=== PATIENT | female | born 1965 | race Caucasian/White ===

== ENCOUNTER 2021-05-05 14:33 | Inpatient (IN) ==
--- NOTE | 2021-05-05 14:33 | Emergency Department Note ---
Impression & Plan Thalamic stroke, Tobacco abuse, Right arm weakness, Expressive aphasia ED Provider Note NAME: YANY PORTILLO AGE: 56 SEX: F : 1965 ARRIVES VIA: Ambulance INFORMANT: Patient, ED PROVIDER(S): David June MD Chief Complaint: Difficulty with speech, right-sided weakness HPI: I did receive an out of hospital phone call via EMS when the patient was approximately 8 to 10 minutes out due to concern for cute onset at 1350 of right-sided weakness and associated garbled speech. Patient reportedly had sy mptoms earlier in the week but they resolved quite quickly and the patient did not seek any care. The patient is a smoker but denies any alcohol or drug use. The patient states that she does not take blood thinners. The patient does have a remote history of atrial flutter in the past for which she was on Eliquis. Patient is adamant about not taking blood thinners. Patient's speech is somewhat confused but she is able to respond appropriately to yes or no questioning and can follow basic commands. Patient did have right upper extremity but not right lower extremity weakness and did have some difficulty with right-sided grimace. EMS states that the patient symptoms have improved. BSG was normal. Patient systolic was in the 150s. Patient does complain of headache and has a history of migraines. ROS: See HPI for pertinent positives and negatives. A total of 10 systems were reviewed and otherwise negative. Past medical history: See below Surgical history: See below Social history: See below Physical Exam: GENERAL: NAD, non-toxic. EYE EXAM: Normal conjunctiva. PERRL, no anisocoria and EOM's grossly intact w/o pain. NECK: Supple, no nuchal rigidity, no adenopathy, non-tender. No signs of meningismus. LUNGS: Clear to auscultation. Normal chest wall mechanics. HEART: NSR, no MRG. ABDOMEN: Abdomen soft, non-tender, normo-active bowel sounds, no masses, no rebound or guarding. BACK: No CVA TTP. SKIN: No rashes and no bruising. UPPER EXTREMITIES: Upper extremities are grossly normal. LOWER EXTREMITIES: Grossly normal, no edema. NEURO EXAM: Awake and alert and does follow basic commands, cranial nerves II- XII grossly intact with exception of right-sided droop, expressive aphasia noted. Grossly normal bilateral upper and lower extremity strength. Differential diagnoses: Infection, dehydration, metabolic abnormality, hypo/hyperglycemia, electrolyte disturbance, anemia, hypoxia, cardiac sources, intracerebral event, toxicologic, neurologic, as well as other pathologies. Course: Patient was seen and evaluated the bedside. Full history physical exam was per formed. EKG interpreted by me Normal sinus rhythm, rate of 70, normal intervals, left axis deviation, no obvious ST elevations, T wave inversion in V2. Imaging Studies: See Below Cardiac monitoring: An order was placed for continuous cardiac monitoring. The monitor shows a rate of 68 with sinus rhythm. MDM: Patient was seen due to concern for right-sided deficits. Patient's last med list showed that the patient was on Eliquis and metoprolol. I did ask shelter case manager to try and see if there was a current med list and/or most recent note. The stroke neurologist did speak with the patient and the patient's symptoms seem to regress from when she initially presented to the emergency department as the patient had worsening expressive aphasia and right upper extremity weakness. The telestroke neurologist was unable to verify if the patient was not taking Eliquis. I did attempt to call the patient's mother which was listed as a contact return straight to [facility]. I then tried to expand The search for a contact number to verify as I went back in the room and wrote down the medicati ons and the patient was unable to say yes or no appropriately with regard to what medication she may or may not take. This did delay the possibility of administering TNK as concomitant taking blood thinning medications is a contraindication for administering TN K. I had spoken with telestroke 15 to 20 minutes after the patient's presentation with Dr. Rodrigez who did evaluate the patient patient was having stuttering symptoms with worsening right upper extremity weakness and aphasia. She is also hesitant to administer TNKase given the concern for the possibility of taking blood thinner. I did speak with the patient's mother who stated that she should be taking a blood thinning medication but she is unsure as to whether or not she is taking it. After further discussion with the patient's daughter who arrived she went and asked her mother if she was taking the blood thinner and she stated yes. I did speak with on-call cardiology Dr. Will who was kind enough to try to search for the patient to the [facility] records and it was noted that the patient is not prescribed through [facility] any Eliquis whatsoever. The patient is only written for aspirin and metoprolol. The patient's boyfriend went to the patient's house and called in stating that the only medication he could find was metoprolol. The patient does feel her medications at [facility] in [place]. The ED pharmacist did call the pharmacy. The patient has not filled Eliquis since August 2018. The patient does not use any other locations to fill medications per daughter. After further discussion with the daughter at bedside it seems to be that I would be thought that the patient was taking a blood thinner that they were referring to aspirin as a blood thinning medication. There was no evidence of any Eliquis at the patient's home or in her purse. Given this I believe it unlikely that the patient is taking Eliquis Eliquis as she has not had it filled at the pharmacy which she routinely fills her metoprolol since 2018. Family is comfortable with administering this medication. I did speak with the telestroke neurologist Dr. Rodrigez again who also reevaluated the patient and agrees that given the research we had done to either confirm or deny the Eliquis would put her at a low likelihood of taking the Eliquis to where she believes TN K reasonable at this time the patient is still within the TNKase window. I did speak with the on-call hospitalist and the patient was admitted to the medicine service by Dr. Nieto. I did speak with the on-call storage architect Dr. Baker to make them aware of the patient. MRI did show acute thalamic stroke. Patient had virtual complete resolution of her symptoms and is awake alert and talking. The patient has good and equal symmetric strength in her bilateral upper extremities. After being evaluated the hospitalist patient did have some mild left-sided chest discomfort was ordered CT angio of the chest. This was negative. Patient was taken to the intensive care unit. Critical Care: I have personally spent 125 minutes of critical care time in direct management of this patient. This includes bedside care, interpretation of diagnostic studies, and testing, discussion with consultants, patient, and family members, and other require inpatient management activities. This 125 minutes is in excess of all separately billable procedures. Past Med/Surg History Medical History No significant past medical history Surgical History History of breast biopsy History of biopsy breast open on CCD History of laparoscopic cholecystectomy Family History Mother Atrial fibrillation Aunt Breast cancer Grandmother Coronary heart disease Social History Smoking Status: Current every day smoker Hx Alcohol Use: No Hx Substance Use: No Preferred Language: Arabic Communication Ability: Impaired International First Officer Required: No Beliefs That Will Affect Care: None marital status: Current Living Situation: Alone current occupational status: employed Feels Safe at Home: Yes Safety Concerns: Feels Safe At This Time Assistive Devices: CPAP Allergies Allergies Allergy/AdvReac Type Severity Reaction Status Date / Time codeine AdvReac Intermediate NAUSEA/VOMI Verified 05/05/21 15:00 TING Home Meds Home Medications Medication Instructions Recorded Confirmed aspirin 81 mg tablet,delayed 81 mg PO DAILY 05/05/21 05/05/21 release metoprolol succinate 25 mg 25 mg PO DAILY 05/05/21 05/05/21 tablet,extended release 24 hr Results & Data (ED) Vital Signs Vital Signs - 24 hr 05/05/21 14:48 05/05/21 15:10 05/05/21 15:32 Temperature 36.8 C Temperature Source Oral Pulse Rate 72 Pulse Rate [Left Finger] 55 L Pulse Rhythm [Left Finger] Regular Pulse Strength [Left Finger] Normal Respiratory Rate 18 16 Respiratory Effort / Characteristics Non-Labored Non-Labored Spontaneous Respiratory Depth Normal Normal Respiratory Pattern Regular Blood Pressure 137/87 Blood Pressure [Left Arm] 137/75 Blood Pressure Mean 103 Blood Pressure Mean [Left Arm] 95 Blood Pressure Position [Left Arm] Sitting Pulse Oximetry 98 97 Oxygen Delivery Method Room Air Room Air Sepsis Recent Fever Within 48 Hours No Sepsis New/Unexplained Change in Mental Status No Sepsis Action Taken by Nursing No Action Required 05/05/21 16:23 Temperature Temperature Source Pulse Rate Pulse Rate [Left Finger] 57 L Pulse Rhythm [Left Finger] Pulse Strength [Left Finger] Respiratory Rate 18 Respiratory Effort / Characteristics Respiratory Depth Respiratory Pattern Blood Pressure Blood Pressure [Left Arm] 150/81 H Blood Pressure Mean Blood Pressure Mean [Left Arm] 104 Blood Pressure Position [Left Arm] Lying Pulse Oximetry 99 Oxygen Delivery Method Sepsis Recent Fever Within 48 Hours Sepsis New/Unexplained Change in Mental Status Sepsis Action Taken by [facility] Medications Current Medication List: was personally reviewed by me Laboratory Data Attestation: I reviewed the patient's lab results. Result diagrams: 05/05/21 14:59 05/05/21 14:59 Lab Results 05/05/21 05/05/21 05/05/21 Range/Units 14:59 14:59 14:59 WBC 6.85 (4.8-10.8) K/uL RBC 4.31 (4.2-5.4) M/uL Hgb 12.9 (12.0-16.0) g/dL Hct 39.6 (37-47) % MCV 91.9 (80-100) fL MCH 29.9 (25-34) pg MCHC 32.6 (32-36) g/dL RDW Std Deviation 43.9 (36.4-46.3) fL RDW Coeff of Andrea 13.0 (11.5-14.5) % Plt Count 271 (130-400) K/uL MPV 9.3 (7.4-10.4) fL Immature Gran % (Auto) 0.1 % Neut % (Auto) 51.6 % Lymph % (Auto) 35.5 % Gregg % (Auto) 6.6 % Eos % (Auto) 5.3 % Baso % (Auto) 0.9 % Neut # (Auto) 3.54 (1.4-6.5) K/uL Lymph # (Auto) 2.43 (1.2-3.4) K/uL Gregg # (Auto) 0.45 (0.11-0.59) K/uL Eos # (Auto) 0.36 (0-0.5) K/uL Baso # (Auto) 0.06 (0-0.2) K/uL Immature Gran # (Auto) 0.01 (0.00-0.02) K/uL PT 10.1 (9.0-12.0) Seconds INR 1.0 (0.9-1.1) APTT 26.1 (21.0-31.0) Seconds PTT Ratio 1.0 Sodium (136-145) mmol/L Potassium (3.5-5.1) mmol/L Chloride (98-107) mmol/L Carbon Dioxide (21-32) mmol/L Anion Gap (3-11) BUN (6-23) mg/dl Creatinine (0.6-1.2) mg/dl Est Cr Clr Drug Dosing ml/min Est GFR ( Amer) ml/min Est GFR (Non-Af Amer) ml/min BUN/Creatinine Ratio (10-20) Glucose (70-99(Fasting)) mg/dl POC Glucose (70-99) mg/dl Calcium (8.5-10.1) mg/dl Magnesium (1.7-2.4) mg/dl Total Bilirubin (0.2-1.0) mg/dl AST (13-39) U/L ALT (7-52) U/L Alkaline Phosphatase (34-104) U/L Troponin I (0-0.04) ng/ml Total Protein (6.0-8.3) gm/dl Albumin (3.4-5.0) gm/dl Globulin (2.5-4.0) gm/dl Albumin/Globulin Ratio (0.9-2) SARS-CoV-2, RNA, NAAT (NEGATIVE) Blood Type O Positive Antibody Screen NEGATIVE 05/05/21 05/05/21 05/05/21 Range/Units 14:59 14:59 15:19 WBC (4.8-10.8) K/uL RBC (4.2-5.4) M/uL Hgb (12.0-16.0) g/dL Hct (37-47) % MCV (80-100) fL MCH (25-34) pg MCHC (32-36) g/dL RDW Std Deviation (36.4-46.3) fL RDW Coeff of Andrea (11.5-14.5) % Plt Count (130-400) K/uL MPV (7.4-10.4) fL Immature Gran % (Auto) % Neut % (Auto) % Lymph % (Auto) % Gregg % (Auto) % Eos % (Auto) % Baso % (Auto) % Neut # (Auto) (1.4-6.5) K/uL Lymph # (Auto) (1.2-3.4) K/uL Gregg # (Auto) (0.11-0.59) K/uL Eos # (Auto) (0-0.5) K/uL Baso # (Auto) (0-0.2) K/uL Immature Gran # (Auto) (0.00-0.02) K/uL PT (9.0-12.0) Seconds INR (0.9-1.1) APTT (21.0-31.0) Seconds PTT Ratio Sodium 135 L (136-145) mmol/L Potassium 3.8 (3.5-5.1) mmol/L Chloride 103 (98-107) mmol/L Carbon Dioxide 26 (21-32) mmol/L Anion Gap 6 (3-11) BUN 18 (6-23) mg/dl Creatinine 0.87 (0.6-1.2) mg/dl Est Cr Clr Drug Dosing 78.5 ml/min Est GFR ( Amer) 86.9 ml/min Est GFR (Non-Af Amer) 75.0 ml/min BUN/Creatinine Ratio 20.7 H (10-20) Glucose 85 (70-99(Fasting)) mg/dl POC Glucose 87 (70-99) mg/dl Calcium 8.8 (8.5-10.1) mg/dl Magnesium 2.0 (1.7-2.4) mg/dl Total Bilirubin 0.4 (0.2-1.0) mg/dl AST 18 (13-39) U/L ALT 13 (7-52) U/L Alkaline Phosphatase 49 (34-104) U/L Troponin I < 0.03 (0-0.04) ng/ml Total Protein 7.0 (6.0-8.3) gm/dl Albumin 4.0 (3.4-5.0) gm/dl Globulin 3.0 (2.5-4.0) gm/dl Albumin/Globulin Ratio 1.3 (0.9-2) SARS-CoV-2, RNA, NAAT NEGATIVE (NEGATIVE) Blood Type Antibody Screen Administered Medications Discontinued Medications Famotidine (Famotidine 20mg/5ml Iv Push) 20 mg IV ONE STA Stop: 05/05/21 18:07 Last Admin: 05/05/21 18:06 Dose: 20 mg Documented by: [id number] Famotidine (Famotidine 20mg/5ml Iv Push) Confirm Administered Dose 20 mg IV .STK-MED ONE Stop: 05/05/21 18:09 Last Admin: 05/05/21 18:22 Dose: Not Given Documented by: [id number] Tenecteplase 23 mg/ Syringe 4.6 mls @ 55.2 mls/min IV NOW ONE; Protocol Stop: 05/05/21 16:25 Last Admin: 05/05/21 16:17 Dose: 55.2 mls/min Documented by: [id number] Cosigned by: [id number] Ioversol (Optiray 320 125ml) 120 ml IV ONCE ONE Stop: 05/05/21 14:42 Last Admin: 05/05/21 14:41 Dose: 120 ml Documented by: [id number] Ioversol (Optiray 320 125ml) 102 ml IV ONCE ONE Stop: 05/05/21 18:21 Last Admin: 05/05/21 18:20 Dose: 102 ml Documented by: [id number] Miscellaneous (Stat Iv) 1 ea N/A NOW STA Stop: 05/05/21 16:15 Last Admin: 05/05/21 17:18 Dose: Not Given Documented by: [id number] Sodium Chloride (Sodium Chloride 0.9% 10ml Flush) 20 ml IV NOW STA Stop: 05/05/21 16:15 Last Admin: 05/05/21 16:10 Dose: 20 ml Documented by: [id number] Imaging Data Radiologist's Impression: Head CT 05/05/21 14:[address] DOSE: HISTORY: Sudden onset speech difficulty. Stroke Like Symptoms TECHNIQUE: Multiaxial CT images of the head were performed without the use of intravenous contrast. Automated exposure control was utilized for this study. A dose lowering technique was utilized adhering to the principles of ALARA. Comparison: None. Findings: The paranasal sinuses and mastoid air cells are clear. The calvarium and skull base are intact. The ventricles are normal in size. There is no mass, hematoma, midline shift. Small focus of encephalomalacia within the right parietal lobe on image 18 favors an old infarct. This measures 2 cm. Partially calcified left posterior scalp nodule measuring 1 cm. This may represent a calcified sebaceous cyst. Impression: 1. No definite acute infarct. 2. A 2 cm focus of encephalomalacia within the right parietal lobe appears to represent an old infarct. ACT 112: Negative or not required by law. Electronically signed by: Regino Lara M.D. 05/05/2021 2:56 PM Head CTA 05/05/21 14:29 CT angio head w con CLINICAL HISTORY: Stroke Like Symptoms . Sudden onset garbled speech COMPARISON STUDY: CT brain without contrast from 05/05/2021 CT DOSE: 1057.05 mGy.cm TECHNIQUE: CT Angio of the brain was performed.followed by image post processing with coronal, and sagittal MIP reformats. Contrast Volume: Optiray 320, 120 ml FINDINGS: Vascular findings: There is normal enhancement within the internal carotid arteries bilaterally. There is normal enhancement noted within the anterior, middle and posterior cerebral arteries. Nonvascular findings: There is homogeneous attenuation of the brain parenchyma bilaterally. There is no evidence for an acute infarct or cerebral edema. IMPRESSION: Negative CT angiogram of the brain with contrast. ACT 112: Negative or not required by law. Electronically signed by: Kurt Galdamez M.D. 05/05/2021 3:22 PM Neck CTA 05/05/21 14:29 CT ANGIOGRAPHY OF THE NECK WITH CONTRAST CLINICAL HISTORY: Stroke Like Symptoms. Speech difficulties. COMPARISON STUDY: No previous studies for comparison. Technique: CT angiography of the carotid and vertebral arteries was obtained using Optiray and 3D reconstruction on an independent workstation. NASCET criteria was utilized. Automated exposure control was utilized for the study. A dose lowering technique was utilized adhering to the principles of ALARA. Findings: Visualized portions of the lung apices are unremarkable. There is no cervical lymphadenopathy. No acute cervical spinal fracture is identified. This exam is mildly compromised by motion artifact. The bilateral common carotid, cervical internal carotid and vertebral arteries are patent. There is no graciela nosis or dissection within these vessels. No significant atherosclerotic plaque is identified. CTA of the head will be reported separately IMPRESSION: Unremarkable CTA of the neck. No stenosis or dissection within the bilateral common carotid, cervical internal carotid or vertebral arteries. ACT 112: Negative or not required by law. Electronically signed by: Jamaal Farmer M.D. 05/05/2021 3:19 PM Brain MRI 05/05/21 16:19 MRI OF THE BRAIN WITHOUT CONTRAST CLINICAL HISTORY: Right-sided deficits. COMPARISON STUDY: Head CT and CTA of the head performed earlier today. TECHNIQUE: Utilizing a 1.5 Lilo magnet and dedicated coil, multiplanar, multiecho imaging of the brain was performed without IV contrast. FINDINGS: Note is made of a 1 cm hyperintense focus within the anterior left thalamus shown on axial diffusion-weighted sequence image 13 of 24. This is hypointense on the ADC map. There is also a hyperintense focus within the right parietal lobe on diffusion-weighted sequence which is hyperintense on the ADC map. There is associated T1 hyperintensity suggestive of laminar necrosis. Ventricular system is normal. Basal cisterns are patent. There are no extra axial collections. No acute intracranial hemorrhage, midline shift or mass effect is present. No intracranial masses are identified on this unenhanced examination. Mucous retention cyst within the right maxillary sinus is incidentally noted. There is a sebaceous cyst of the left occipital scalp. IMPRESSION: 1. 1 cm acute infarct within the anterior left thalamus. No mass effect. No acute hemorrhage. 2. Old right parietal lobe infarct. ACT 112: Negative or not required by law. Electronically signed by: Jamaal Farmer M.D. 05/05/2021 5:18 PM Discharge Plan Visit Data Chief Complaint: Stroke Alert Stated Complaint: STROKE ALERT ED Provider: David June Discharge Problem: Thalamic stroke, Tobacco abuse, Right arm weakness, Expressive aphasia Patient Disposition: Admitted As Inpatient Discharge Instructions Interventions: ED Discharge Assessment Last Done: 05/05/21 18:40
[2021-05-05] MEDS ORDERED: OPTIRAY 320 125ml IV ONE ×2 (14:41→18:20)
--- NOTE | 2021-05-05 14:58 | CT Scan Report ---
HEAD CT NONCONTRAST CT DOSE: HISTORY: Sudden onset speech difficulty. Stroke Like Symptoms TECHNIQUE: Multiaxial CT images of the head were performed without the use of intravenous contrast. A utomated exposure control was utilized for this study. A dose lowering technique was utilized adheri ng to the principles of ALARA. Comparison: None. Findings: The paranasal sinuses and mastoid air cells are clear. The calvarium and skull base are int act. The ventricles are normal in size. There is no mass, hematoma, midline shift. Small focus of enc ephalomalacia within the right parietal lobe on image 18 favors an old infarct. This measures 2 cm. P artially calcified left posterior scalp nodule measuring 1 cm. This may represent a calcified sebaceo us cyst. Impression: 1. No definite acute infarct. 2. A 2 cm focus of encephalomalacia within the right parietal lobe appears to represent an old infarc t. ACT 112: Negative or not required by law. Electronically signed by: Regino Lara M.D. 05/05/2021 2:56 PM
[2021-05-05 15:10] LABS: Basophils # (auto) 0.06 K/uL (0-0.2); Basophils % (auto) 0.9 %; Eosinophils # (auto) 0.36 K/uL (0-0.5); Eosinophils % (auto) 5.3 %; Hematocrit (blood only) 39.6 % (37-47); Hemoglobin 12.9 g/dL (12.0-16.0); Immature Granulocytes # (auto) 0.01 K/uL (0.00-0.02); Immature Granulocytes % (auto) 0.1 %; Lymphocytes # (auto) 2.43 K/uL (1.2-3.4); Lymphocytes % (auto) 35.5 %; Mean Corpuscular Hemoglobin 29.9 pg (25-34); Mean Corpuscular Hgb Conc 32.6 g/dL (32-36); Mean Corpuscular Volume 91.9 fL (80-100); Mean Platelet Volume 9.3 fL (7.4-10.4); Monocytes # (auto) 0.45 K/uL (0.11-0.59); Monocytes % (auto) 6.6 %; Neutrophils # (auto) 3.54 K/uL (1.4-6.5); Neutrophils % (auto) 51.6 %; Platelet Count 271 K/uL (130-400); RDW Standard Deviation 43.9 fL (36.4-46.3); Red Blood Count 4.31 M/uL (4.2-5.4); White Blood Count 6.85 K/uL (4.8-10.8)
--- NOTE | 2021-05-05 15:21 | CT Scan Report ---
CT ANGIOGRAPHY OF THE NECK WITH CONTRAST CLINICAL HISTORY: Stroke Like Symptoms. Speech difficulties. COMPARISON STUDY: No previous studies for comparison. Technique: CT angiography of the carotid and vertebral arteries was obtained using Optiray and 3D rec onstruction on an independent workstation. NASCET criteria was utilized. Automated exposure control was utilized for the study. A dose lowering technique was utilized adhering to the principles of ALA RA. Findings: Visualized portions of the lung apices are unremarkable. There is no cervical lymphadenopat hy. No acute cervical spinal fracture is identified. This exam is mildly compromised by motion artifa ct. The bilateral common carotid, cervical internal carotid and vertebral arteries are patent. There is no stenosis or dissection within these vessels. No significant atherosclerotic plaque is identifie d. CTA of the head will be reported separately IMPRESSION: Unremarkable CTA of the neck. No stenosis or dissection within the bilateral common carotid, cervical internal carotid or vertebral arteries. ACT 112: Negative or not required by law. Electronically signed by: Jamaal Farmer M.D. 05/05/2021 3:19 PM
[2021-05-05 15:22] LABS: Partial Thromboplastin Time 26.1 Seconds (21.0-31.0); Prothrombin Time 10.1 Seconds (9.0-12.0)
--- NOTE | 2021-05-05 15:23 | CT Scan Report ---
CT angio head w con CLINICAL HISTORY: Stroke Like Symptoms . Sudden onset garbled speech COMPARISON STUDY: CT brain without contrast from 05/05/2021 CT DOSE: 1057.05 mGy.cm TECHNIQUE: CT Angio of the brain was performed.followed by image post processing with coronal, and s agittal MIP reformats. Contrast Volume: Optiray 320, 120 ml FINDINGS: Vascular findings: There is normal enhancement within the internal carotid arteries bilaterally. The re is normal enhancement noted within the anterior, middle and posterior cerebral arteries. Nonvascular findings: There is homogeneous attenuation of the brain parenchyma bilaterally. There is no evidence for an acute infarct or cerebral edema. IMPRESSION: Negative CT angiogram of the brain with contrast. ACT 112: Negative or not required by law. Electronically signed by: Kurt Galdamez M.D. 05/05/2021 3:22 PM
[2021-05-05 15:34] LABS: Troponin I < 0.03 ng/ml (0-0.04)
[2021-05-05 15:48] LABS: Alanine Aminotransferase 13 U/L (7-52); Albumin Globulin Ratio 1.3 (0.9-2); Alkaline Phosphatase 49 U/L (34-104); Anion Gap 6 (3-11); Aspartate Aminotransferase 18 U/L (13-39); BUN Creatinine Ratio 20.7 (10-20); Bilirubin,Total 0.4 mg/dl (0.2-1.0); Blood Urea Nitrogen 18 mg/dl (6-23); Calcium 8.8 mg/dl (8.5-10.1); Carbon Dioxide 26 mmol/L (21-32); Chloride 103 mmol/L (98-107); Creatinine Clr Calc Pharmacy 78.5 ml/min; Est GFR (African American) 86.9 ml/min; Glucose 85 mg/dl (70-99(Fasting)); Potassium 3.8 mmol/L (3.5-5.1); Sodium 135 mmol/L (136-145)
[2021-05-05] MEDS ORDERED: SODIUM CHLORIDE 0.9% 10ML FLUSH IV STA (16:14)
[2021-05-05] MEDS ORDERED: STAT IV STA (16:14)
[2021-05-05] MEDS ORDERED: No Aspirin within 24hrs of THROMBOLYTIC-Stroke PO SCH (16:15)
[2021-05-05] MEDS ORDERED: TENECTEPLASE 23 MG in SYRINGE 0 ML IV ONE (16:24)
--- NOTE | 2021-05-05 16:45 | Critical Care Consultation ---
Date of Consultation May 05, 2021 Assessment & Plan (1) CVA (cerebral vascular accident): (2) Tobacco abuse: (3) Seasonal allergies: (4) Migraines: (5) Hyperlipidemia: Reason Critically Ill: 56-year-old female here with a PMHx significant for hyperlipidemia, migraines, active smoker, remote history of atrial flutter (last on anticoagulation in 2019 per chart review by [facility] and corroboration with usual pharmacy) who presented with right-sided weakness and garbled speech and admitted for acute stroke. Now status post TNKase. Neuro CAM ICU: NEGATIVE Acute stroke: - Brain MRI with 1 cm acute infarct within anterior left thalamus, no mass- effect, no acute hemorrhage. -Patient with past history of atrial flutter, apparently had been on anticoagulation with Eliquis until 2019. This was discontinued as she was thought to be low risk. -Now status post TNKase -- Head CT 24h post -On aspirin 81 mg daily at home hold this until 24 hours post TNKase -Neurology consult -Will require secondary prevention going forward with resumption of aspirin, possible clopidogrel, high-intensity statin, close blood pressure control -Lipid profile and A1c in the morning -Smoking cessation recommended Cardiac History of atrial flutter - Rate control with metoprolol, currently in NSR - If this history is well-established may require anticoagulation in the future Respiratory No current respiratory concerns GI Heart healthy diet once speech evaluation completed Famotidine 20mg daily Renal/Electrolytes No significant electrolyte derangement. Replace lytes as needed. No concerns at this time. Endo ICU hyperglycemia protocol Heme Stable H&H. ID No concerns for infection at this point. Lines/IV Access - PIVs intact. DVT Prophylaxis s/p TNKase -- reevaluate DVT ppx at 24 hours Thank you for allowing us to be part of this patient's care. Please refer to Dr. Baker's documentation for any further recommendations. History of Present Illness History of Present Illness Sofia Tomlin is a 56-year-old female with PMH of hyperlipidemia, migraines, active smoker, remote history of atrial flutter (last on anticoagulation in 2019 per chart review by [facility] and corroboration with usual pharmacy) who presented due to acute onset of right-sided weakness and garbled speech today at 1350. The patient did report similar symptoms earlier in this week but they had resolved quickly and she did not seek medical care for these. Patient is an active smoker. Initially, it was unclear whether the patient was taking anticoagulation as she does have a past history of atrial flutter. She has seen [facility] cardiology, who confirmed that they have not prescribed any anticoagulation for her. Pharmacy was able to contact her usual outpatient pharmacy to corroborate this information they did confirm that the patient last filled Eliquis prescription in 2019. Upon arrival, patient had right upper extremity weakness, but not right lower extremity weakness. She did have some garbled speech as well. As per above situation, decision was made with family permission to initiate TNKase as she was within the window for thrombolysis. Her initial head CT showed no definite acute infarct, did show a focus of encephalomalacia within the right parietal lobe appearing to represent an old infarct. Additionally, had unremarkable CTA of the head and neck. Brain MRI did show a 1 cm acute infarct within the anterior left thalamus, no mass-effect, no acute hemorrhage as well as an old right parietal lobe infarct. Upon my evaluation in the room, patient was conversing adequately and was able to move all 4 extremities without issue. She was complaining at the time of chest heaviness/discomfort. EKG had been done minutes before my arrival and showed normal sinus rhythm with PACs. Blood pressure of both upper extremities was consistent in the 150s to 160s over 90s. Decision was made by ER physician and admitting hospitalist to order stat chest CT to rule out aortic dissection in the setting of her recent TNKase. Allergies Allergy/AdvReac Type Severity Reaction Status Date / Time codeine AdvReac Intermediate NAUSEA/VOMI Verified 05/05/21 15:00 TING Home Medications Medication Instructions Recorded Confirmed Type aspirin 81 mg tablet,delayed 81 mg PO DAILY 05/05/21 05/05/21 History release metoprolol succinate 25 mg 25 mg PO DAILY 05/05/21 05/05/21 History tablet,extended release 24 hr Patient History Medical History (Updated 05/05/21 @ 17:51 by Mark Nieto MD) No significant past medical history Surgical History (Updated 10/20/18 @ 11:14 by Jermaine Delgado) History of breast biopsy History of biopsy breast open on CCD History of laparoscopic cholecystectomy Family History (Updated 10/20/18 @ 11:16 by Jermaine Hoaglund) Mother Atrial fibrillation Aunt Breast cancer Grandmother Coronary heart disease Social History Smoking Status: Current every day smoker Hx Alcohol Use: No Hx Substance Use: No Preferred Language: Yoruba Communication Ability: Impaired Baker Paint Required: No Beliefs That Will Affect Care: None marital status: Current Living Situation: Alone current occupational status: employed Feels Safe at Home: Yes Safety Concerns: Feels Safe At This Time Assistive Devices: CPAP Review of Systems Review of Systems: Reports chest pain. Denies F/C, N/V, abdominal pain, shortness of breath, cough. Physical Exam Physical Exam: GENERAL: A&Ox3. NAD. HEENT: PERRL, EOMI. Moist mucous membranes. NECK: No JVD. No lymphadenopathy. CHEST/LUNGS: No increased WOB, CTAB. -wrr. HEART: RRR. No m/g/r. ABDOMEN: NT/ND, soft. BS+ x4 EXTREMITIES: No cyanosis, no clubbing, no edema SKIN: Warm and dry. No rashes or lesions. PSYCHIATRIC: Euthymic affect, no SI, no pressured speech, no hallucinations NEUROLOGIC: Normal speech, moving all 4 extremities equally. No FND. Results & Data Results & Data ([facility]) Vital Signs (Past 12 Hours) Vital Signs Temp Pulse Pulse Resp BP BP Pulse Ox 05/05/21 16:38 36.7 C 61 20 128/86 99 05/05/21 16:23 57 L 18 150/81 H 99 05/05/21 15:32 55 L 16 137/75 97 05/05/21 15:10 36.8 C 05/05/21 14:48 72 18 137/87 98 Critical Care Results & Data Vital Signs (Past 12 Hours) Vital Signs Temp Pulse Pulse Resp BP BP BP 05/05/21 18:23 88 18 148/116 H 05/05/21 18:04 151/99 H 160/99 H 05/05/21 17:53 72 18 156/120 H 05/05/21 17:38 36.8 C 72 18 126/67 05/05/21 17:23 36.8 C 67 20 120/88 05/05/21 17:08 69 20 129/107 H 05/05/21 16:53 36.7 C 52 L 18 122/65 05/05/21 16:38 36.7 C 61 20 128/86 05/05/21 16:23 57 L 18 150/81 H 05/05/21 15:32 55 L 16 137/75 05/05/21 15:10 36.8 C 05/05/21 14:48 72 18 137/87 Pulse Ox 05/05/21 18:23 99 05/05/21 18:04 05/05/21 17:53 98 05/05/21 17:38 100 05/05/21 17:23 98 05/05/21 17:08 99 05/05/21 16:53 98 05/05/21 16:38 99 05/05/21 16:23 99 05/05/21 15:32 97 05/05/21 15:10 05/05/21 14:48 98 Lab & Micro Results (Past 24 Hours) RBC 4.31 M/uL (4.2-5.4) 05/05/21 WBC 6.85 K/uL (4.8-10.8) 05/05/21 Hgb 12.9 g/dL (12.0-16.0) 05/05/21 Hct 39.6 % (37-47) 05/05/21 MCV 91.9 fL (80-100) 05/05/21 MCH 29.9 pg (25-34) 05/05/21 MCHC 32.6 g/dL (32-36) 05/05/21 RDW Standard Deviation 43.9 fL (36.4-46.3) 05/05/21 RDW Coefficient of Variation 13.0 % (11.5-14.5) 05/05/21 Plt Count 271 K/uL (130-400) 05/05/21 MPV 9.3 fL (7.4-10.4) 05/05/21 Neutrophils (%) (Auto) 51.6 % 05/05/21 Lymphocytes (%) (Auto) 35.5 % 05/05/21 Monocytes # (Auto) 0.45 K/uL (0.11-0.59) 05/05/21 Eosinophils # (Auto) 0.36 K/uL (0-0.5) 05/05/21 Immature Granulocyte % (Auto) 0.1 % 05/05/21 Neutrophils # (Auto) 3.54 K/uL (1.4-6.5) 05/05/21 Lymphocytes # (Auto) 2.43 K/uL (1.2-3.4) 05/05/21 Monocytes # (Auto) 0.45 K/uL (0.11-0.59) 05/05/21 Eosinophils # (Auto) 0.36 K/uL (0-0.5) 05/05/21 Basophils # (Auto) 0.06 K/uL (0-0.2) 05/05/21 Immature Granulocyte # (Auto) 0.01 K/uL (0.00-0.02) 05/05/21 Na 135 mmol/L (136-145) L 05/05/21 K 3.8 mmol/L (3.5-5.1) 05/05/21 Cl 103 mmol/L (98-107) 05/05/21 CO2 26 mmol/L (21-32) 05/05/21 Anion Gap 6 (3-11) 05/05/21 BUN 18 mg/dl (6-23) 05/05/21 Creatinine 0.87 mg/dl (0.6-1.2) 05/05/21 Estimated GFR ( Amer) 86.9 ml/min 05/05/21 Estimated GFR (Non-Af Amer) 75.0 ml/min 05/05/21 BUN/Creatinine Ratio 20.7 (10-20) H 05/05/21 Glu 85 mg/dl (70-99(Fasting)) 05/05/21 Ca 8.8 mg/dl (8.5-10.1) 05/05/21 Total Bilirubin 0.4 mg/dl (0.2-1.0) 05/05/21 AST 18 U/L (13-39) 05/05/21 ALT 13 U/L (7-52) 05/05/21 Alkaline Phosphatase 49 U/L (34-104) 05/05/21 TP 7.0 gm/dl (6.0-8.3) 05/05/21 Albumin 4.0 gm/dl (3.4-5.0) 05/05/21 Globulin 3.0 gm/dl (2.5-4.0) 05/05/21 Albumin/Globulin Ratio 1.3 (0.9-2) 05/05/21 Mg 2.0 mg/dl (1.7-2.4) 05/05/21 14:59 05/05/21 Calcium Level 8.8 mg/dl (8.5-10.1) 05/05/21 14:59 05/05/21 Prothromb Time International Ratio 1.0 (0.9-1.1) 05/05/21 14:59 05/05/21 Diagnostic Findings (Past 24 Hours) Head CT 05/05/21 14:[address] DOSE: HISTORY: Sudden onset speech difficulty. Stroke Like Symptoms TECHNIQUE: Multiaxial CT images of the head were performed without the use of intravenous contrast. Automated exposure control was utilized for this study. A dose lowering technique was utilized adhering to the principles of ALARA. Comparison: None. Findings: The paranasal sinuses and mastoid air cells are clear. The calvarium and skull base are intact. The ventricles are normal in size. There is no mass, hematoma, midline shift. Small focus of encephalomalacia within the right parietal lobe on image 18 favors an old infarct. This measures 2 cm. Partially calcified left posterior scalp nodule measuring 1 cm. This may represent a calcified sebaceous cyst. Impression: 1. No definite acute infarct. 2. A 2 cm focus of encephalomalacia within the right parietal lobe appears to represent an old infarct. ACT 112: Negative or not required by law. Electronically signed by: Regino Lara M.D. 05/05/2021 2:56 PM Head CTA 05/05/21 14:29 CT angio head w con CLINICAL HISTORY: Stroke Like Symptoms . Sudden onset garbled speech COMPARISON STUDY: CT brain without contrast from 05/05/2021 CT DOSE: 1057.05 mGy.cm TECHNIQUE: CT Angio of the brain was performed.followed by image post processing with coronal, and sagittal MIP reformats. Contrast Volume: Optiray 320, 120 ml FINDINGS: Vascular findings: There is normal enhancement within the internal carotid arteries bilaterally. There is normal enhancement noted within the anterior, mi ddle and posterior cerebral arteries. Nonvascular findings: There is homogeneous attenuation of the brain parenchyma bilaterally. There is no evidence for an acute infarct or cerebral edema. IMPRESSION: Negative CT angiogram of the brain with contrast. ACT 112: Negative or not required by law. Electronically signed by: Kurt Galdamez M.D. 05/05/2021 3:22 PM Neck CTA 05/05/21 14:29 CT ANGIOGRAPHY OF THE NECK WITH CONTRAST CLINICAL HISTORY: Stroke Like Symptoms. Speech difficulties. COMPARISON STUDY: No previous studies for comparison. Technique: CT angiography of the carotid and vertebral arteries was obtained using Optiray and 3D reconstruction on an independent workstation. NASCET criteria was utilized. Automated exposure control was utilized for the study. A dose lowering technique was utilized adhering to the principles of ALARA. Findings: Visualized portions of the lung apices are unremarkable. There is no cervical lymphadenopathy. No acute cervical spinal fracture is identified. This exam is mildly compromised by motion artifact. The bilateral common carotid, cervical internal carotid and vertebral arteries are patent. There is no stenosis or dissection within these vessels. No significant atherosclerotic plaque is identified. CTA of the head will be reported separately IMPRESSION: Unremarkable CTA of the neck. No stenosis or dissection within the bilateral common carotid, cervical internal carotid or vertebral arteries. ACT 112: Negative or not required by law. Electronically signed by: Jamaal Farmer M.D. 05/05/2021 3:19 PM Brain MRI 05/05/21 16:19 MRI OF THE BRAIN WITHOUT CONTRAST CLINICAL HISTORY: Right-sided deficits. COMPARISON STUDY: Head CT and CTA of the head performed earlier today. TECHNIQUE: Utilizing a 1.5 Lilo magnet and dedicated coil, multiplanar, multiecho imaging of the brain was performed without IV contrast. FINDINGS: Note is made of a 1 cm hyperintense focus within the anterior left thalamus shown on axial diffusion-weighted sequence image 13 of 24. This is hypointense on the ADC map. There is also a hyperintense focus within the right parietal lobe on diffusion-weighted sequence which is hyperintense on the ADC map. There is associated T1 hyperintensity suggestive of laminar necrosis. Ventricular system is normal. Basal cisterns are patent. There are no extra axial collections. No acute intracranial hemorrhage, midline shift or mass effect is present. No intracranial masses are identified on this unenhanced examination. Mucous retention cyst within the right maxillary sinus is incidentally noted. There is a sebaceous cyst of the left occipital scalp. IMPRESSION: 1. 1 cm acute infarct within the anterior left thalamus. No mass effect. No acute hemorrhage. 2. Old right parietal lobe infarct. ACT 112: Negative or not required by law. Electronically signed by: Jamaal Farmer M.D. 05/05/2021 5:18 PM Chest CTA 05/05/21 18:02 CT ANGIOGRAPHY OF THE CHEST DISSECTION PROTOCOL CLINICAL HISTORY: Atypical chest pain. Evaluate for dissection. COMPARISON STUDY: Chest radiograph August 10, 2018. TECHNIQUE: Before and following the IV administration of 120 mL of Optiray, helical axial images of the chest were obtained. Maximal intensity projections and sagittal and coronal reformats were viewed on an independent 3D workstation. IV contrast was administered without complication. Automated exposure control was utilized for the study. A dose lowering technique was utilized adhering to the principles of ALARA. CT DOSE: 685.86 mGy.cm FINDINGS: The ascending aorta is ectatic, measuring 3.9 cm at the level of the main pulmonary artery. There is no intramural hematoma or dissection within the thoracic aorta. There is no pericardial effusion. No enlarged thoracic lymph nod es are present. No central pulmonary embolus. No pneumothorax or pleural effusion is noted. Note is made of an irregular 1.1 cm subpleural right lower lobe nodular opacity on image 290 of 281. Otherwise, lungs are clear. No acute fracture or suspicious lesion is identified within visualized portions of the bony thorax. There are postoperative findings within the right breast. Gallbladder is surgically absent. IMPRESSION: 1. No thoracic aortic dissection. Ectatic ascending aorta, measuring 3.9 cm. 2. 1.1 cm irregular subpleural right lower lobe nodular opacity. This is probably infectious. However, a pulmonary nodule could appear similar and therefore a follow-up chest CT in 3 months to ensure resolution is recommended. ACT 112: Negative or not required by law. Electronically signed by: Jamaal Farmer M.D. 05/05/2021 6:41 PM I & O Totals 24 Hours 05/04/21 05/05/21 05/06/21 06:59 06:59 06:59 Output Total 1500 / 1500 Balance -1500 / -1500 Cumulative 05/05/21 14:21 thru 05/05/21 18:20 Output Total 1500 Balance -1500 RT Ventilator Mngmt (Last Documented) Ventilator Ordered Settings Respiratory Rate 18 05/05/21 18:23 Ventilator - PT Measurements Respiratory Rate 18 Resident Activity Tracking Resident Involvement: Resident Care Provided Care Provided: Adult [facility]
--- NOTE | 2021-05-05 17:19 | Magnetic Resonance Report ---
MRI OF THE BRAIN WITHOUT CONTRAST CLINICAL HISTORY: Right-sided deficits. COMPARISON STUDY: Head CT and CTA of the head performed earlier today. TECHNIQUE: Utilizing a 1.5 Lilo magnet and dedicated coil, multiplanar, multiecho imaging of the bra in was performed without IV contrast. FINDINGS: Note is made of a 1 cm hyperintense focus within the anterior left thalamus shown on axial diffusion-weighted sequence image 13 of 24. This is hypointense on the ADC map. There is also a hyper intense focus within the right parietal lobe on diffusion-weighted sequence which is hyperintense on the ADC map. There is associated T1 hyperintensity suggestive of laminar necrosis. Ventricular system is normal. Basal cisterns are patent. There are no extra axial collections. No acute intracranial he morrhage, midline shift or mass effect is present. No intracranial masses are identified on this unen hanced examination. Mucous retention cyst within the right maxillary sinus is incidentally noted. The re is a sebaceous cyst of the left occipital scalp. IMPRESSION: 1. 1 cm acute infarct within the anterior left thalamus. No mass effect. No acute hemorrhage. 2. Old right parietal lobe infarct. ACT 112: Negative or not required by law. Electronically signed by: Jamaal Farmer M.D. 05/05/2021 5:18 PM
--- NOTE | 2021-05-05 17:33 | History & Physical Report ---
Date of Service May 05, 2021 Assessment & Plan (1) CVA (cerebral vascular accident): Plan: Expressive dysphasia (mostly resolved), slurred speech (resolved), right upper extremity weakness (resolved). Right facial droop (resolved). Unclear if diplopia (left lateral gaze) is more chronic than acute. Decreased visual acuity in left eye. Brain MRI Tenecteplase given 16:17 Admit to ICU Suspect etiology underlying flutter fibrillation given history of this however in NSR currently - monitor on telemetry Consult neurology Lipid panel and HbA1C with AM labs (2) Hyperlipidemia: Plan: Lipid panel in AM (3) Tobacco abuse: Plan: Encourage cessation (4) NENA (obstructive sleep apnea): Plan: CPAP HS (5) History of atrial flutter: Plan: Monitor on telemetry Plan: VTE prophylaxis - chrmical deferred on admission due to TNK given Diet - NPO pending speech eval Disposition - admit to ICU Admission and Anticipated Discharge Date Admission Date: May 05, 2021 History of Present Illness Chief Complaint: Stroke-like symptoms Primary Care Provider: ELI Ballesteros Sofia Tomlin is a 56 year old female who presents to the ER with slurred speech, diplopia, expressive dysphasia, facial droop and right upper extremity weakness. She reports her symptoms started around 13:50 today while at work. 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 One of her clients was a nurse and called for an ambulance. In the ER initially her symptoms were still significantly present. There was some initial delay as she has a history of atrial flutter and previously on Eliquis. Due to her expressive dysphasia she had difficulty communicating initially whether she was still on this. On confirmation with cardiology it had been discontinued she was given tenecteplase on the advice of telestroke. She was also reportedly having a headache. When seen by this provider with family at bedside her right facial droop and right upper extremity weakness have resolved. She is still having some vision changes (diplopia) and very mild expressive dysphasia without any slurred speech. She reports a couple of similar episodes last week lasting minutes and she thought this was the same thing as those had completely resolved by themselves. She was referred to medicine for admission and ongoing management of stroke like symptoms. Allergies Allergy/AdvReac Type Severity Reaction Status Date / Time codeine AdvReac Intermediate NAUSEA/VOMI Verified 05/05/21 15:00 TING Home Medications Medication Instructions Recorded Confirmed Type aspirin 81 mg tablet,delayed 81 mg PO DAILY 05/05/21 05/05/21 History release metoprolol succinate 25 mg 25 mg PO DAILY 05/05/21 05/05/21 History tablet,extended release 24 hr Past Med/Surg History Medical History (Updated 05/06/21 @ 07:04 by Mark Nieto MD) History of atrial flutter No significant past medical history Surgical History History of breast biopsy History of biopsy breast open on CCD History of laparoscopic cholecystectomy Family History Mother Atrial fibrillation Aunt Breast cancer Grandmother Coronary heart disease Social History Smoking Status: Current every day smoker Hx Alcohol Use: No Hx Substance Use: No Preferred Language: Romansh Communication Ability: Impaired [id number] 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 Beliefs That Will Affect Care: None marital status: Current Living Situation: Alone current occupational status: employed Feels Safe at Home: Yes Safety Concerns: Feels Safe At This Time Assistive Devices: Oxygen - at Night Review of Systems Review of Systems: All systems reviewed & are unremarkable except as noted in HPI & below Physical Exam Constitutional: WD/WN, vitals as above Eyes: normal visual mccartney by confrontation and PERRL; no conjunctival abnormality and + EOM not intact (diplopia (unliateral vision resolves, worse with left lateral gaze)) ENMT: external ear and nose normal, oropharynx normal Throat: uvula midline Neck: trachea midline, no thyromegaly Respiratory: normal respiratory effort, lungs clear to auscultation Cardiovascular: RRR, no murmur, no edema Gastrointestinal (Abdomen): normal bowel sounds, soft, nontender, no hepatosplenomegaly Musculoskeletal: no cyanosis or clubbing, extremities motor strength 5/5 Neurologic: moves all extremities and awake; no focal motor deficits (no lateralizing deficit) and not confused Speech / Cognition: + expressive aphasia (very mild occasional stumbling, much improved per family and RN); no receptive aphasia Motor/Sensory: no tremor, no pronator drift and no sensory deficit Cranial Nerves: PERRL, normal facial strength, tongue midline, able to rotate head bilaterally and able to elevate shoulders bilaterally; + EOM not intact (see above) Coordination: normal [id number] test and normal [id number] test Psychiatric: A+Ox3, euthymic affect Results & Data Results & Data ([facility]) Vital Signs (Past 12 Hours) Vital Signs Temp Pulse Pulse Resp BP BP Pulse Ox 05/05/21 16:23 57 L 18 150/81 H 99 05/05/21 15:32 55 L 16 137/75 97 05/05/21 15:10 36.8 C 05/05/21 14:48 72 18 137/[address] NONCONTRAST CT DOSE: HISTORY: Sudden onset speech difficulty. Stroke Like Symptoms TECHNIQUE: Multiaxial CT images of the head were performed without the use of intravenous contrast. Automated exposure control was utilized for this study. A dose lowering technique was utilized adhering to the principles of ALARA. Comparison: None. Findings: The paranasal sinuses and mastoid air cells are clear. The calvarium and skull base are intact. The ventricles are normal in size. There is no mass, hematoma, midline shift. Small focus of encephalomalacia within the right parietal lobe on image 18 favors an old infarct. This measures 2 cm. Partially calcified left posterior scalp nodule measuring 1 cm. This may represent a calcified sebaceous cyst. Impression: 1. No definite acute infarct. 2. A 2 cm focus of encephalomalacia within the right parietal lobe appears to represent an old infarct. CT angio head w con CLINICAL HISTORY: Stroke Like Symptoms . Sudden onset garbled speech COMPARISON STUDY: CT brain without contrast from 05/05/2021 CT DOSE: 1057.05 mGy.cm TECHNIQUE: CT Angio of the brain was performed.followed by image post processing with coronal, and sagittal MIP reformats. Contrast Volume: Optiray 320, 120 ml FINDINGS: Vascular findings: There is normal enhancement within the internal carotid arteries bilaterally. There is normal enhancement noted within the anterior, middle and posterior cerebral arteries. Nonvascular findings: There is homogeneous attenuation of the brain parenchyma bilaterally. There is no evidence for an acute infarct or cerebral edema. IMPRESSION: Negative CT angiogram of the brain with contrast. CT ANGIOGRAPHY OF THE NECK WITH CONTRAST CLINICAL HISTORY: Stroke Like Symptoms. Speech difficulties. COMPARISON STUDY: No previous studies for comparison. Technique: CT angiography of the carotid and vertebral arteries was obtained using Optiray and 3D reconstruction on an independent workstation. NASCET criteria was utilized. Automated exposure control was utilized for the study. A dose lowering technique was utilized adhering to the principles of ALARA. Findings: Visualized portions of the lung apices are unremarkable. There is no cervical lymphadenopathy. No acute cervical spinal fracture is identified. This exam is mildly compromised by motion artifact. The bilateral common carotid, cervical internal carotid and vertebral arteries are patent. There is no stenosis or dissection within these vessels. No significant atherosclerotic plaque is identified. CTA of the head will be reported separately IMPRESSION: Unremarkable CTA of the neck. No stenosis or dissection within the bilateral common carotid, cervical internal carotid or vertebral arteries. Medications Administered ER Medications Given: Tenecteplase ECG Indication: other (CVA) Rate (beats per minute): 70 Rhythm: normal sinus Findings: + nonspecific-ST abn Comparison ECG Date: from (August 10, 2018) Change: the following changes noted (sinus rhythm replaced atrial flutter) Code Status & VTE Plan Code Status Full VTE Prophylaxis Plan VTE Prophylaxis will be ordered: Yes Reason for no VTE drug order: Contraindicated (on admission with TNK) PG Care Time/CCT Total # of Minutes Spent Total Time Spent with Patient: Total time spent is greater than 50% in coordination of care (as documented) at patient's floor/unit and/or counseling patient: Coding Level of Care Code 75501 Initial Inpt Care Lvl 3 Diagnoses CVA (cerebral vascular accident) I63.9 Hyperlipidemia E78.5 Tobacco abuse Z72.0 NENA (obstructive sleep apnea) G47.33 History of atrial flutter Z86.79
[2021-05-05] MEDS ORDERED: FAMOTIDINE 20MG/5ML IV PUSH IV STA (18:06)
[2021-05-05] MEDS ORDERED: FAMOTIDINE 20MG/5ML IV PUSH IV ONE (18:08)
[2021-05-05] MEDS ORDERED: PHARMACIST DISCHARGE MED REC CONSULT PRN (18:28)
[2021-05-05] MEDS ORDERED: ICU PROTOCOL FOR HYPERGLYCEMIA PRN (18:28)
--- NOTE | 2021-05-05 18:42 | CT Scan Report ---
CT ANGIOGRAPHY OF THE CHEST DISSECTION PROTOCOL CLINICAL HISTORY: Atypical chest pain. Evaluate for dissection. COMPARISON STUDY: Chest radiograph August 10, 2018. TECHNIQUE: Before and following the IV administration of 120 mL of Optiray, helical axial images of t he chest were obtained. Maximal intensity projections and sagittal and coronal reformats were viewed on an independent 3D workstation. IV contrast was administered without complication. Automated exp osure control was utilized for the study. A dose lowering technique was utilized adhering to the lisha Adams. CT DOSE: 685.86 mGy.cm FINDINGS: The ascending aorta is ectatic, measuring 3.9 cm at the level of the main pulmonary artery . There is no intramural hematoma or dissection within the thoracic aorta. There is no pericardial ef fusion. No enlarged thoracic lymph nodes are present. No central pulmonary embolus. No pneumothorax o r pleural effusion is noted. Note is made of an irregular 1.1 cm subpleural right lower lobe nodular opacity on image 290 of 281. Otherwise, lungs are clear. No acute fracture or suspicious lesion is id entified within visualized portions of the bony thorax. There are postoperative findings within the r ight breast. Gallbladder is surgically absent. IMPRESSION: 1. No thoracic aortic dissection. Ectatic ascending aorta, measuring 3.9 cm. 2. 1.1 cm irregular subpleural right lower lobe nodular opacity. This is probably infectious. However , a pulmonary nodule could appear similar and therefore a follow-up chest CT in 3 months to ensure re solution is recommended. ACT 112: Negative or not required by law. Electronically signed by: Jamaal Farmer M.D. 05/05/2021 6:41 PM
--- NOTE | 2021-05-05 21:52 | Electrocardiogram Report ---
Test Reason : Blood Pressure : / mmHG Vent. Rate : 070 BPM Atrial Rate : 070 BPM P-R Int : 172 ms QRS Dur : 094 ms QT Int : 442 ms P-R-T Axes : 074 -13 051 degrees QTc Int : 477 ms Normal sinus rhythm Cannot rule out Anterior infarct (cited on or before 10-AUG-2018) Nonspecific ST abnormality Abnormal ECG When compared with ECG of 10-AUG-2018 12:57, Sinus rhythm has replaced Atrial flutter Questionable change in initial forces of Septal leads QT has lengthened Confirmed by Darian Harman ([id number]) on 05/05/2021 9:52:13 PM Referred By: Confirmed By:Darian Harman
--- NOTE | 2021-05-06 00:55 | Communication Note ---
Date of Service: May 06, 2021 Patient noted to flip into a flutter on the monitor with occasional rhythms consistent with a fib. Patient with documented h/o a fib currently treated with metoprolol alone. Previously on Eliquis, but this had been discontinued. Patient evaluated at bedside. She reports no new symptoms at this time and her exam has been unchanged. EKG ordered and reviewed by myself to demonstrate a flutter rhythm. Given that the patient's new CVA is likely cardioembolic in nature given her history of a. fib with recent c/o palpitations, I did feel in prudent to r each out to specialist for guidance as to treatment moving forward with anticoagulation. 0043: Reached out to [facility] ( ). Spoke with Dr. Cleveland. He recommends holding on anticoagulation for 24 hours after TNKase. He suggest continuing daily Aspirin. Suggest the patient can likely restart Eliquis after 24 hours. Nursing staff and patient updated at bedside. I have personally spent 35 minutes of critical care time in the direct management of this patient. This is a life/limb threatening event. This includes time spent evaluating patient, direct bedside care, chart review, placing orders, interpretation of diagnostic studies, discussion with consultants, patient, and family members, as well as other required patient management activities. This time is exclusive of all separately billable procedures, and teaching time and separate from and in addition to any other critical care service time. Coding Level of Care Code Critical Care 1st 30-74 mins Time Spent (min) 35
[2021-05-06 06:09] LABS: Basophils # (auto) 0.07 K/uL (0-0.2); Basophils % (auto) 0.6 %; Eosinophils # (auto) 0.17 K/uL (0-0.5); Eosinophils % (auto) 1.6 %; Hematocrit (blood only) 42.5 % (37-47); Hemoglobin 14.2 g/dL (12.0-16.0); Immature Granulocytes # (auto) 0.02 K/uL (0.00-0.02); Immature Granulocytes % (auto) 0.2 %; Lymphocytes # (auto) 2.22 K/uL (1.2-3.4); Lymphocytes % (auto) 20.3 %; Mean Corpuscular Hemoglobin 30.3 pg (25-34); Mean Corpuscular Hgb Conc 33.4 g/dL (32-36); Mean Corpuscular Volume 90.8 fL (80-100); Mean Platelet Volume 9.3 fL (7.4-10.4); Monocytes # (auto) 0.75 K/uL (0.11-0.59); Monocytes % (auto) 6.8 %; Neutrophils # (auto) 7.73 K/uL (1.4-6.5); Neutrophils % (auto) 70.5 %; Platelet Count 275 K/uL (130-400); RDW Standard Deviation 43.2 fL (36.4-46.3); Red Blood Count 4.68 M/uL (4.2-5.4); White Blood Count 10.96 K/uL (4.8-10.8)
[2021-05-06 06:36] LABS: BUN Creatinine Ratio 14.5 (10-20); Calcium 9.1 mg/dl (8.5-10.1); Chol HDL Ratio 2.5 (0-5); Creatinine Clr Calc Pharmacy 82.3 ml/min; Est GFR (Non-African American) 79.4 ml/min; Phosphorus 4.2 mg/dl (2.5-4.9); Potassium 4.3 mmol/L (3.5-5.1)
--- NOTE | 2021-05-06 06:58 | Critical Care Progress Note ---
Date of Service May 06, 2021 Assessment & Plan (1) CVA (cerebral vascular accident): (2) Tobacco abuse: (3) Seasonal allergies: (4) Migraines: (5) Hyperlipidemia: Plan: Reason Critically Ill: 56-year-old female here with a PMHx significant for hyperlipidemia, migraines, active smoker, remote history of atrial flutter (last on anticoagulation in 2019 per chart review by [facility] and corroboration with usual pharmacy) who presented with right-sided weakness and garbled speech and admitted for acute stroke. Now status post TNKase. Neuro CAM ICU: NEGATIVE Acute stroke: - Brain MRI with 1 cm acute infarct within anterior left thalamus, no mass- effect, no acute hemorrhage. -Patient with past history of atrial flutter, apparently had been on anticoagulation with Eliquis until 2019. This was discontinued as she was thought to be low risk. -Now status post TNKase -- 24h f/u CT-H -On aspirin 81 mg daily at home restart 24 hours post TNKase -Neurology consult -Will require secondary prevention going forward with resumption of aspirin, possible clopidogrel, high-intensity statin, close blood pressure control -A1c pending -Smoking cessation recommended Cardiac Atrial flutter - Rate control with metoprolol, currently in NSR - A. flutter/fib on monitor overnight but patient having minimal symptoms with it - Likely cause of her CVA - Will require restarting her Eliquis 24h post TNK Respiratory No current respiratory concerns GI Heart healthy diet once speech evaluation completed Famotidine 20mg daily Renal/Electrolytes No significant electrolyte derangement. Replace lytes as needed. No concerns at this time. Endo ICU hyperglycemia protocol Heme Stable H&H. ID No concerns for infection at this point. Lines/IV Access - PIVs intact. DVT Prophylaxis s/p TNKase -- restart Eliquis 24h post TNKase Dispo: Stable for downgrade Thank you for allowing us to be part of this patient's care. Please refer to Dr. Baker's documentation for any further recommendations. Admission and Anticipated Discharge Date Admission Date: May 05, 2021 Supervising Physician Co-Signing Physician Notes Dr. Gonzalez was resident physician during care of patient. I separately evaluated patient for giron portions of the history and the exam. I was present during the critical portion of medical decision making, and I discussed the case with the resident. I generally agree with the findings and plan. Patient had episode of atrial fibrillation atrial flutter which a.m. assuming is most likely the source of the patient's CVA. Will require systemic anticoagulation will be able to restart in 24 hours along with antiplatelet medication. Stable for downgrade to med telemetry at 24 hours status post TNKase Subjective Episode of atrial flutter/fib overnight. She has past history of this and was on anticoagulation previously but had been stopped. Discussed need for restarting AC 24-hrs post TNK. Otherwise doing well and her right-sided weakness is now resolved. Speech normalized. Review of Systems Review of Systems: Denies F/C, N/V, CP, palp, abdominal pain, shortness of breath, cough. Physical Exam Physical Exam: GENERAL: A&Ox3. NAD. HEENT: PERRL, EOMI. Moist mucous membranes. NECK: No JVD. No lymphadenopathy. CHEST/LUNGS: No increased WOB, CTAB. -wrr. HEART: RRR. No m/g/r. ABDOMEN: NT/ND, soft. BS+ x4 EXTREMITIES: No cyanosis, no clubbing, no edema SKIN: Warm and dry. No rashes or lesions. PSYCHIATRIC: Euthymic affect, no SI, no pressured speech, no hallucinations NEUROLOGIC: Normal speech, moving all 4 extremities equally. No FND. Results & Data Results & Data ([facility]) Vital Signs (Past 12 Hours) Vital Signs Temp Pulse Pulse Resp BP Pulse Ox 05/06/21 06:19 37.5 C 92 H 22 124/89 94 05/06/21 05:19 86 23 119/84 94 05/06/21 04:19 36.6 C 87 12 115/74 96 05/06/21 03:19 83 21 138/88 95 05/06/21 02:35 88 22 97 05/06/21 02:19 105 H 17 129/95 97 05/06/21 01:19 95 H 20 137/95 96 05/06/21 00:19 89 21 148/103 H 96 05/06/21 00:00 91 H 05/05/21 23:49 36.6 C 89 23 145/102 H 97 05/05/21 23:19 66 17 147/99 H 97 05/05/21 22:49 61 21 151/96 H 97 05/05/21 22:40 87 22 97 05/05/21 22:19 72 20 135/93 97 05/05/21 21:49 66 20 129/79 97 05/05/21 21:19 63 21 120/82 93 05/05/21 20:49 65 17 118/89 97 05/05/21 20:19 87 21 120/90 96 05/05/21 19:49 85 16 117/85 96 05/05/21 19:19 87 22 143/96 H 95 05/05/21 19:00 83 Critical Care Results & Data Vital Signs (Past 12 Hours) Vital Signs Temp Pulse Pulse Resp BP Pulse Ox 05/06/21 06:19 37.5 C 92 H 22 124/89 94 05/06/21 05:19 86 23 119/84 94 05/06/21 04:19 36.6 C 87 12 115/74 96 05/06/21 03:19 83 21 138/88 95 05/06/21 02:35 88 22 97 05/06/21 02:19 105 H 17 129/95 97 05/06/21 01:19 95 H 20 137/95 96 05/06/21 00:19 89 21 148/103 H 96 05/06/21 00:00 91 H 05/05/21 23:49 36.6 C 89 23 145/102 H 97 05/05/21 23:19 66 17 147/99 H 97 05/05/21 22:49 61 21 151/96 H 97 05/05/21 22:40 87 22 97 05/05/21 22:19 72 20 135/93 97 05/05/21 21:49 66 20 129/79 97 05/05/21 21:19 63 21 120/82 93 Lab & Micro Results (Past 24 Hours) RBC 4.68 M/uL (4.2-5.4) 05/06/21 WBC 10.96 K/uL (4.8-10.8) H 05/06/21 Hgb 14.2 g/dL (12.0-16.0) 05/06/21 Hct 42.5 % (37-47) 05/06/21 MCV 90.8 fL (80-100) 05/06/21 MCH 30.3 pg (25-34) 05/06/21 MCHC 33.4 g/dL (32-36) 05/06/21 RDW Standard Deviation 43.2 fL (36.4-46.3) 05/06/21 RDW Coefficient of Variation 13.0 % (11.5-14.5) 05/06/21 Plt Count 275 K/uL (130-400) 05/06/21 MPV 9.3 fL (7.4-10.4) 05/06/21 Neutrophils (%) (Auto) 70.5 % 05/06/21 Lymphocytes (%) (Auto) 20.3 % 05/06/21 Monocytes # (Auto) 0.75 K/uL (0.11-0.59) H 05/06/21 Eosinophils # (Auto) 0.17 K/uL (0-0.5) 05/06/21 Immature Granulocyte % (Auto) 0.2 % 05/06/21 Neutrophils # (Auto) 7.73 K/uL (1.4-6.5) H 05/06/21 Lymphocytes # (Auto) 2.22 K/uL (1.2-3.4) 05/06/21 Monocytes # (Auto) 0.75 K/uL (0.11-0.59) H 05/06/21 Eosinophils # (Auto) 0.17 K/uL (0-0.5) 05/06/21 Basophils # (Auto) 0.07 K/uL (0-0.2) 05/06/21 Immature Granulocyte # (Auto) 0.02 K/uL (0.00-0.02) 05/06/21 Na 138 mmol/L (136-145) 05/06/21 K 4.3 mmol/L (3.5-5.1) 05/06/21 Cl 104 mmol/L (98-107) 05/06/21 CO2 28 mmol/L (21-32) 05/06/21 Anion Gap 6 (3-11) 05/06/21 BUN 12 mg/dl (6-23) 05/06/21 Creatinine 0.83 mg/dl (0.6-1.2) 05/06/21 Estimated GFR ( Amer) 92.0 ml/min 05/06/21 Estimated GFR (Non-Af Amer) 79.4 ml/min 05/06/21 BUN/Creatinine Ratio 14.5 (10-20) 05/06/21 Glu 106 mg/dl (70-99(Fasting)) H 05/06/21 Ca 9.1 mg/dl (8.5-10.1) 05/06/21 Phosphorus Level 4.2 mg/dl (2.5-4.9) 05/06/21 Total Bilirubin 0.4 mg/dl (0.2-1.0) 05/05/21 AST 18 U/L (13-39) 05/05/21 ALT 13 U/L (7-52) 05/05/21 Alkaline Phosphatase 49 U/L (34-104) 05/05/21 TP 7.0 gm/dl (6.0-8.3) 05/05/21 Albumin 4.0 gm/dl (3.4-5.0) 05/05/21 Globulin 3.0 gm/dl (2.5-4.0) 05/05/21 Albumin/Globulin Ratio 1.3 (0.9-2) 05/05/21 Mg 2.0 mg/dl (1.7-2.4) 05/06/21 05:55 05/06/21 Calcium Level 9.1 mg/dl (8.5-10.1) 05/06/21 05:55 05/06/21 Prothromb Time International Ratio 1.0 (0.9-1.1) 05/05/21 14:59 05/05/21 Diagnostic Findings (Past 24 Hours) Head CT 05/05/21 14:[address] DOSE: HISTORY: Sudden onset speech difficulty. Stroke Like Symptoms TECHNIQUE: Multiaxial CT images of the head were performed without the use of intravenous contrast. Automated exposure control was utilized for this study. A dose lowering technique was utilized adhering to the principles of ALARA. Comparison: None. Findings: The paranasal sinuses and mastoid air cells are clear. The calvarium and skull base are intact. The ventricles are normal in size. There is no mass, hematoma, midline shift. Small focus of encephalomalacia within the right parietal lobe on image 18 favors an old infarct. This measures 2 cm. Partially calcified left posterior scalp nodule measuring 1 cm. This may represent a calcified sebaceous cyst. Impression: 1. No definite acute infarct. 2. A 2 cm focus of encephalomalacia within the right parietal lobe appears to represent an old infarct. ACT 112: Negative or not required by law. Electronically signed by: Regino Lara M.D. 05/05/2021 2:56 PM Head CTA 05/05/21 14:29 CT angio head w con CLINICAL HISTORY: Stroke Like Symptoms . Sudden onset garbled speech COMPARISON STUDY: CT brain without contrast from 05/05/2021 CT DOSE: 1057.05 mGy.cm TECHNIQUE: CT Angio of the brain was performed.followed by image post processing with coronal, and sagittal MIP reformats. Contrast Volume: Optiray 320, 120 ml FINDINGS: Vascular findings: There is normal enhancement within the internal carotid arteries bilaterally. There is normal enhancement noted within the anterior, middle and posterior cerebral arteries. Nonvascular findings: There is homogeneous attenuation of the brain parenchyma bilaterally. There is no evidence for an acute infarct or cerebral edema. IMPRESSION: Negative CT angiogram of the brain with contrast. ACT 112: Negative or not required by law. Electronically signed by: Kurt Galdamez M.D. 05/05/2021 3:22 PM Neck CTA 05/05/21 14:29 CT ANGIOGRAPHY OF THE NECK WITH CONTRAST CLINICAL HISTORY: Stroke Like Symptoms. Speech difficulties. COMPARISON STUDY: No previous studies for comparison. Technique: CT angiography of the carotid and vertebral arteries was obtained using Optiray and 3D reconstruction on an independent workstation. NASCET criteria was utilized. Automated exposure control was utilized for the study. A dose lowering technique was utilized adhering to the principles of ALARA. Findings: Visualized portions of the lung apices are unremarkable. There is no cervical lymphadenopathy. No acute cervical spinal fracture is identified. This exam is mildly compromised by motion artifact. The bilateral common carotid, cervical internal carotid and vertebral arteries are patent. There is no stenosis or dissection within these vessels. No significant atherosclerotic plaque is identified. CTA of the head will be reported separately IMPRESSION: Unremarkable CTA of the neck. No stenosis or dissection within the bilateral common carotid, cervical internal carotid or vertebral arteries. ACT 112: Negative or not required by law. Electronically signed by: Jamaal Farmer M.D. 05/05/2021 3:19 PM Brain MRI 05/05/21 16:19 MRI OF THE BRAIN WITHOUT CONTRAST CLINICAL HISTORY: Right-sided deficits. COMPARISON STUDY: Head CT and CTA of the head performed earlier today. TECHNIQUE: Utilizing a 1.5 Lilo magnet and dedicated coil, multiplanar, multiecho imaging of the brain was performed without IV contrast. FINDINGS: Note is made of a 1 cm hyperintense focus within the anterior left thalamus shown on axial diffusion-weighted sequence image 13 of 24. This is hypointense on the ADC map. There is also a hyperintense focus within the right parietal lobe on diffusion-weighted sequence which is hyperintense on the ADC map. There is associated T1 hyperintensity suggestive of laminar necrosis. Ventricular system is normal. Basal cisterns are patent. There are no extra axial collections. No acute intracranial hemorrhage, midline shift or mass effect is present. No intracranial masses are identified on this unenhanced examination. Mucous retention cyst within the right maxillary sinus is inc identally noted. There is a sebaceous cyst of the left occipital scalp. IMPRESSION: 1. 1 cm acute infarct within the anterior left thalamus. No mass effect. No acute hemorrhage. 2. Old right parietal lobe infarct. ACT 112: Negative or not required by law. Electronically signed by: Jamaal Farmer M.D. 05/05/2021 5:18 PM Chest CTA 05/05/21 18:02 CT ANGIOGRAPHY OF THE CHEST DISSECTION PROTOCOL CLINICAL HISTORY: Atypical chest pain. Evaluate for dissection. COMPARISON STUDY: Chest radiograph August 10, 2018. TECHNIQUE: Before and following the IV administration of 120 mL of Optiray, helical axial images of the chest were obtained. Maximal intensity projections and sagittal and coronal reformats were viewed on an independent 3D workstation. IV contrast was administered without complication. Automated exposure control was utilized for the study. A dose lowering technique was utilized adhering to the principles of ALARA. CT DOSE: 685.86 mGy.cm FINDINGS: The ascending aorta is ectatic, measuring 3.9 cm at the level of the main pulmonary artery. There is no intramural hematoma or dissection within the thoracic aorta. There is no pericardial effusion. No enlarged thoracic lymph nodes are present. No central pulmonary embolus. No pneumothorax or pleural effusion is noted. Note is made of an irregular 1.1 cm subpleural right lower lobe nodular opacity on image 290 of 281. Otherwise, lungs are clear. No acute fracture or suspicious lesion is identified within visualized portions of the bony thorax. There are postoperative findings within the right breast. Gallbladder is surgically absent. IMPRESSION: 1. No thoracic aortic dissection. Ectatic ascending aorta, measuring 3.9 cm. 2. 1.1 cm irregular subpleural right lower lobe nodular opacity. This is probably infectious. However, a pulmonary nodule could appear similar and therefore a follow-up chest CT in 3 months to ensure resolution is recommended. ACT 112: Negative or not required by law. Electronically signed by: Jamaal Farmer M.D. 05/05/2021 6:41 PM I & O Totals 24 Hours 05/05/21 05/06/21 05/07/21 06:59 06:59 06:59 Intake Total 5 / 5 Output Total 2760 / 2760 Balance -2755 / -2755 Cumulative 05/05/21 14:21 thru 05/06/21 06:00 Intake Total 5 Output Total 2760 Balance -2755 RT Ventilator Mngmt (Last Documented) Ventilator Ordered Settings Respiratory Rate 22 05/06/21 06:19 Ventilator - PT Measurements Respiratory Rate 22 Resident Activity Tracking Resident Involvement: Resident Care Provided Care Provided: Adult Hospital Medicine
--- NOTE | 2021-05-06 07:34 | Electrocardiogram Report ---
Test Reason : Blood Pressure : / mmHG Vent. Rate : 096 BPM Atrial Rate : 361 BPM P-R Int : 000 ms QRS Dur : 088 ms QT Int : 358 ms P-R-T Axes : 000 -30 033 degrees QTc Int : 452 ms Probably atrial fibrillation Left axis deviation Abnormal ECG When compared with ECG of 10-AUG-2018 12:57, Incomplete right bundle branch block is no longer Present Confirmed by Vitor Navarro ([id number]) on 05/06/2021 7:34:22 AM Referred By: REFERRED SELF Confirmed By:Kojo Navarro
--- NOTE | 2021-05-06 08:08 | Billing Data ---
Date of Service May 06, 2021 Coding Level of Care Code 15125 Subseq Hosp Care Lvl 3
[2021-05-06] MEDS: FAMOTIDINE 20 MG TAB PO SCH (08:58)
[2021-05-06] MEDS ORDERED: METOPROLOL SUCC 25MG EXT REL TAB PO SCH (09:00)
[2021-05-06 09:02] LABS: Estimated Average Glucose 120 mg/dl; Hemoglobin A1C 5.8 % (4.5-5.6)
--- NOTE | 2021-05-06 09:04 | Neurology Consultation ---
Date of Consultation May 06, 2021 Assessment & Plan (1) Thalamic stroke: (2) Expressive aphasia: (3) History of atrial flutter: this patient suffered an acute left thalamic stroke May 05 resulting in some transient right facial and right upper extremity weakness, expressive aphasia and nonspecific blurry vision and dizziness. She received tPA in the emergency room and her symptoms resolved. She remains asymptomatic this morning except for a mild nonspecific left periorbital headache. Neurologic examination is unremarkable without focal findings, meningeal signs, or encephalopathy. NIH Stroke Scale equals 0. The patient has a history of atrial flutter / atrial fibrillation in the past and has been off anticoagulation for at least 2 years. Overnight she flipped into atrial flutter /AFib and has been in atrial flutter since. She is asymptomatic clinically with this rhythm. However this rhythm puts her at risk for embolic phenomenon. She does not have much in the way of ischemic stroke risk factors ( former cigarette smoker) and has no significant vascular a nomalies on CT angiography head and neck. Recommendations: 1. Restart anticoagulation, typically done 24 hours after tPA. 2. for now, restart 81 milligram aspirin tablet daily, starting 24 hours after tPA. 3. CT scan of the head per protocol 24 hours after tPA. 4. Increase activity as able. overall, I spent a total of 100 minutes with this case including review of records, review of CT and MRI films, direct evaluation the patient at bedside, and discussion of the case with the patient and RN at bedside, and Ds. Sharri Tolentino including differential diagnosis and treatment options. History of Present Illness Reason for Consultation: Patient is a 56-year-old, I was asked to see at the request of Dr. Nieto, for neurologic consultation regarding stroke. Requesting Physician: Dr. Nieto Attending Physician: Adriane Mccollum MD History of Present Illness This patient has a history of atrial flutter /AFib multiple years ago and was put on Eliquis. Eliquis was stopped in 2018, because she was considered to be "low risk". she has been taking 81 milligram aspirin tablet daily since. Patient tells me she quit cigarette smoking 20 years ago and never was a heavy smoker prior to that anyway. In addition, she tells me that she never had significant headaches or migraines. She has no history of hypertension, diabetes, knowledge of a previous stroke, or dyslipidemia. Approximately 1 week ago she was driving and had the sudden onset of some double vision lasting about 5 minutes or so. There were no other symptoms and the vision issue resolved and did not return. She has not been ill and has had no history of head trauma. The patient woke morning of May 05 as usual 8 breakfast and went to work. She was feeling fine when approximately 1350 she had the onset of some dizzy / lightheaded feeling and her eyes could not focus again. She sat down and realized that she could not get words out. She understood people but nonsense words or the wrong word might come. She was not fluent. She did not notice any weakness or numbness of her arms or legs. Apparently EMS was summoned and they noticed the speech problem and some weakness in the right face and arm. She improve spontaneously on the way to the emergency room. She arrived to the emergency room May 05 at 1448, with a temperature 36.8, pulse 78 regular, respiratory rate 18 and comfortable, blood pressure 137/87, and O2 saturation 98 percent. There was a slight right facial droop noted in the emergency room and some expressive aphasia. Her strength in the limbs was normal. After consultation with [facility] tele stroke, she was given tPA. Her symptoms essentially resolved following this. CBC, Chem profile, and TSH were unremarkable. CT scan of the head showed an old right parietal stroke of a small nature. There were no acute changes. CT angiography of the head and neck were unremarkable with no vascular anomalies or stenoses. CT angiography of the chest was unremarkable although there was a nodule in the right lower lobe. MRI of the brain showed a 1 centimeter acute left thalamic stroke and the small old right parietal stroke. I reviewed the CT and MRI films. Today she has a mild left frontal headache and some "hip pain" from the bed otherwise she has no speech, vision, weakness, numbness, or lightheaded issues. Triglycerides were 78 and total cholesterol 168 hemoglobin A1c is pending. Echocardiogram with bubble study was performed and the results are pending. Allergies Allergy/AdvReac Type Severity Reaction Status Date / Time codeine AdvReac Intermediate NAUSEA/VOMI Verified 05/05/21 15:00 TING Home Medications Medication Instructions Recorded Confirmed Type aspirin 81 mg tablet,delayed 81 mg PO DAILY 05/05/21 05/05/21 History release metoprolol succinate 25 mg 25 mg PO DAILY 05/05/21 05/05/21 History tablet,extended release 24 hr Patient History Medical History History of atrial flutter No significant past medical history Surgical History History of breast biopsy History of biopsy breast open on CCD History of laparoscopic cholecystectomy Family History (Updated 05/06/21 @ 09:01 by Last Arteaga MD) Mother Atrial fibrillation Stroke Aunt Breast cancer Grandmother Coronary heart disease Father Prostate cancer Social History (Updated 05/06/21 @ 09:02 by Last Arteaga MD) Smoking Status: Former smoker Number of Years Since Quit: 20; Hx Alcohol Use: Yes Alcohol Intake Frequency: 2-3 x/Week Hx Substance Use: No Preferred Language: Colombian Communication Ability: Impaired Ring Facer Required: No Beliefs That Will Affect Care: None marital status: Current Living Situation: Alone current occupational status: employed 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 Feels Safe at Home: Yes Safety Concerns: Feels Safe At This Time Assistive Devices: Oxygen - at Night Review of Systems Constitutional: no fever, no fatigue and no weakness Eyes: no diplopia, no eye pain and no worsening vision Ear, Nose, Mouth, Throat: no ear pain, no tinnitus, no hearing loss, no dizziness, no snoring, no hoarseness and no dysphagia Respiratory: no cough and no dyspnea Cardiovascular: no chest pain, no palpitations and no lightheadedness Gastrointestinal: no abdominal pain, no nausea and no vomiting Genitourinary: no dysuria, no urinary frequency and no urinary incontinence Musculoskeletal: no back pain, no neck pain, no radicular pain, no joint pain and no myalgia Integumentary: no rash and no lesions Neurologic: no gait abnormality, no localized weakness, no generalized weakness, no tingling, no numbness, no tremor(s), no abnormal movements, no headache(s), no abnormal speech, no confusion and no memory loss Psychiatric: no depression, no irritability, no anxiety, no difficulty concentrating, no confusion and no hallucinations Endocrine: no fatigue and no flushing Hematologic / Lymphatic: no easy bleeding and no easy bruising Allergy / Immunological: no urticaria and no problem reported Exam (Neuro) Physical Exam: The patient is right-handed. The patient is awake, alert, and attentive. Speech is normal without any aphasia or dysarthria. The patient can name objects, repeat phrases, and has normal spontaneous speech. Mentation and thought processes are intact, with orientation to person, place and time, and normal fund of knowledge. Attention and concentration are normal. Mood and affect are normal and appropriate. General appearance and grooming are normal. Short and long-term memory are intact. The discs are sharp with positive venous pulsations bilaterally. There are no exudates, hemorrhages, or blood vessel changes seen. Pupils are 4 mm bilaterally and reactive to light. Extraocular eye muscles are intact without nystagmus. Visual acuity and visual mccartney seem normal grossly to confrontation. There are no deficits to sensation in the face in all 3 distributions of the fifth cranial nerve bilaterally. Corneal reflexes are positive bilaterally. Facial strength and symmetry was normal bilaterally. Hearing seems normal bilaterally. Palate moves well without asymmetry. There is normal sternocleidomastoid and trapezius (shoulder shrug) strength bilaterally. Tongue is midline with good strength bilaterally. Neck has a full range of motion without discomfort. There are no cervical bruits bilaterally. There are no cranial or ocular bruits. Heart is without murmur. There is a regular rhythm and rate. Cervical, thoracic, and lumbar spine are nontender to palpation. Gait was not specifically tested but she can take a step or 2 without difficulty . Stance was normal and without symptoms. With outstretched arms there is no drift. There are no resting, postural, or action tremors. There is no ataxia with finger to nose testing. There is good facility in the hands. No other abnormal involuntary movements are noted. Motor strength is 5/5 diffusely in the arms bilaterally including deltoids, biceps, triceps, brachioradialis, wrist flexors and extensors, cancellation clerk, and intrinsic hand muscles. Motor strength is 5/5 diffusely in the legs bilaterally including hip flexors, quadriceps, hamstrings, gastrocnemius, tibialis anterior, tibialis posterior, and Peroneii muscles. Toe extensors are normal and there is good bulk in the extensor digitorum brevis muscles bilaterally. The limbs have good tone without rigidity or spasticity. There is no atrophy noted in the muscles. Muscle bulk is normal, there is no tenderness to palpation, no myotonia to percussion, and no fasciculations seen. Sensory examination is intact to touch and pin throughout all 4 limbs diffusely. Reflexes are 2/4 in the biceps, triceps, brachioradialis, quadriceps, and Achilles tendons bilaterally. There is no clonus bilaterally. Toes are downgoing with plantar stimulation bilaterally. Peripheral pulses are present and of normal quality distally in all 4 limbs. There is no peripheral edema noted in the limbs. Results & Data ([facility]) Vital Signs (Past 12 Hours) Vital Signs Temp Pulse Pulse Resp BP Pulse Ox 05/06/21 06:19 37.5 C 92 H 22 124/89 94 05/06/21 05:19 86 23 119/84 94 05/06/21 04:19 36.6 C 87 12 115/74 96 05/06/21 03:19 83 21 138/88 95 05/06/21 02:35 88 22 97 05/06/21 02:19 105 H 17 129/95 97 05/06/21 01:19 95 H 20 137/95 96 05/06/21 00:19 89 21 148/103 H 96 05/06/21 00:00 91 H 05/05/21 23:49 36.6 C 89 23 145/102 H 97 05/05/21 23:19 66 17 147/99 H 97 05/05/21 22:49 61 21 151/96 H 97 05/05/21 22:40 87 22 97 05/05/21 22:19 72 20 135/93 97 05/05/21 21:49 66 20 129/79 97 05/05/21 21:19 63 21 120/82 93 05/05/21 20:49 65 17 118/89 97 05/05/21 20:19 87 21 120/90 96 PG Care Time/CCT Total # of Minutes Spent Total Time Spent with Patient: Total time spent is greater than 50% in coordination of care (as documented) at patient's floor/unit and/or counseling patient: Coding Level of Care Code 87730 Inpt Consult Level 5 Diagnoses Thalamic stroke I63.9 Expressive aphasia R47.01 History of atrial flutter Z86.79 Time Spent (min) 100 Comment add modifiers as able
[2021-05-06] MEDS ORDERED: METOPROLOL TARTRATE 25 MG TAB PO STA (12:25)
--- NOTE | 2021-05-06 13:38 | Cardiology Consultation ---
Date of Consultation May 06, 2021 Assessment & Plan (1) Thalamic stroke: (2) Paroxysmal atrial flutter: (3) Expressive aphasia: (4) NENA (obstructive sleep apnea): Patient is a 56-year-old female presented with an acute left thalamic stroke manifesting as weakness and expressive aphasia treated with thrombolytic therapy. Patient has past history of paroxysmal atrial flutter and lapsed into atrial flutter shortly after admission. Echocardiogram this morning demonstrates apical ballooning cardiomyopathy phenomena. Patient currently asymptomatic heart rates 90-110 in atrial flutter. Issues are addressed as follows 1. Acute left thalamic stroke likely thromboembolic 2. Paroxysmal atrial flutter with patient currently in atrial flutter with elevated ventricular response rate 3. 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 If no hemorrhagic defect we will plan on initiating anticoagulation with Eliquis at 5 mg twice per day Agree with increase in metoprolol succinate dosing. Patient currently asymptomatic from heart rate would not aggressively treat further today with goal of initiating anticoagulation before spontaneous conversion if possible EKG in a.m. LV systolic function will be followed echocardiogram and symptoms Statin initiated as per protocol Cardiology will continue to follow History of Present Illness Reason for Consultation: Atrial flutter, left thalamic stroke Requesting Physician: Dr. Mccollum Attending Physician: Adriane Mccollum MD History of Present Illness Patient is a 56-year-old female with ongoing issues which include 1. Paroxysmal atrial flutter 2. Acute left thalamic stroke, likely embolic 05/05/2021 treated with thrombol ytic therapy 3. 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 Obstructive sleep apnea on CPAP supplementation Patient presents this admission noting having had an episode of transient visual change approximately 1 week prior and sudden onset of dizziness lightheadedness followed by expressive aphasia. Event was witnessed by a client who is a nurse and vice president supply chain summoned promptly. Patient underwent stroke alert protocol and received thrombolytic therapy 1624 on 05/05/2021. Patient had near complete resolve of all symptoms. She notes a low-grade headache today but no other acute findings. Has been aware of intermittent tachypalpitations for a number of years no recent change. No documented prior history of CVA or stroke. Prior to current event [id number] 2 score low. She denies any history of angina, myocardial infarction, congestive heart failure. No fevers chills or unexplained infections. No recent change in exercise tolerance. No bleeding difficulties other than small amount of blood in stools on occasion. 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" No history of hypertension or diabetes Allergies Allergy/AdvReac Type Severity Reaction Status Date / Time codeine AdvReac Intermediate NAUSEA/VOMI Verified 05/05/21 15:00 TING Home Medications Medication Instructions Recorded Confirmed Type aspirin 81 mg tablet,delayed 81 mg PO DAILY 05/05/21 05/05/21 History release metoprolol succinate 25 mg 25 mg PO DAILY 05/05/21 05/05/21 History tablet,extended release 24 hr Patient History Medical History History of atrial flutter No significant past medical history Surgical History History of breast biopsy History of biopsy breast open on CCD History of laparoscopic cholecystectomy Family History Mother Atrial fibrillation Stroke Aunt Breast cancer Grandmother Coronary heart disease Father Prostate cancer Social History Smoking Status: Former smoker Number of Years Since Quit: 20; Hx Alcohol Use: Yes Alcohol Intake Frequency: 2-3 x/Week Hx Substance Use: No Preferred Language: Croatian Communication Ability: Impaired Mirror Machine Feeder Required: No Beliefs That Will Affect Care: None marital status: Current Living Situation: Alone current occupational status: employed 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 Feels Safe at Home: Yes Safety Concerns: Feels Safe At This Time Assistive Devices: Oxygen - at Night Review of Systems Review of Systems: All systems reviewed & are unremarkable except as noted in HPI & below Physical Exam Constitutional: WD/WN, vitals as above Eyes: PERRL, conjunctivae normal, anicteric sclerae ENMT: external ear and nose normal, oropharynx normal Neck: trachea midline, no thyromegaly Respiratory: normal respiratory effort, lungs clear to auscultation Cardiovascular: Rate/Rhythm: + tachycardic and + irregularly irregular Heart Sounds: normal S1 and normal S2; no gallop and no murmur Palpation: normal PMI Vessels: normal carotid upstroke and radial pulses present; no JVD and no carotid bruit Extremities: no edema Gastrointestinal (Abdomen): normal bowel sounds, soft, nontender, no hepatosplenomegaly Musculoskeletal: no cyanosis or clubbing, extremities motor strength 5/5 Skin: no rashes, warm and dry Neurologic: PERRL, EOMI, accommodation nl, no face palsy, no dysarthria Psychiatric: A+Ox3, euthymic affect Results & Data ([facility]) Vital Signs (Past 12 Hours) Vital Signs Temp Pulse Pulse Resp BP BP Pulse Ox 05/06/21 12:19 36.8 C 100 H 21 125/93 96 05/06/21 11:19 111 H 19 116/88 95 05/06/21 10:30 112 H 16 114/78 96 05/06/21 10:20 107 H 19 95 05/06/21 10:19 93 H 114/78 95 05/06/21 10:10 97 H 20 110/76 97 05/06/21 10:00 125 H 20 96 05/06/21 09:53 125 H 15 05/06/21 09:40 108 H 23 94 05/06/21 09:30 107 H 17 121/89 94 05/06/21 09:20 132 H 16 136/94 95 05/06/21 09:19 36.8 C 101 H 24 136/94 96 05/06/21 09:10 115 H 16 92 05/06/21 09:00 104 H 19 153/99 H 96 05/06/21 08:50 95 H 22 135/86 96 05/06/21 08:40 96 H 21 96 05/06/21 08:30 104 H 20 134/96 94 05/06/21 08:20 92 H 21 95 05/06/21 08:10 106 H 18 130/82 95 05/06/21 08:00 94 H 18 145/90 H 94 05/06/21 07:50 107 H 15 95 05/06/21 07:40 102 H 18 96 05/06/21 07:30 89 21 113/78 95 05/06/21 07:20 83 17 124/85 95 05/06/21 07:10 99 H 20 96 05/06/21 07:00 87 19 93 05/06/21 06:19 37.5 C 92 H 22 124/89 94 05/06/21 05:19 86 23 119/84 94 05/06/21 04:19 36.6 C 87 12 115/74 96 05/06/21 03:19 83 21 138/88 95 05/06/21 02:35 88 22 97 05/06/21 02:19 105 H 17 129/95 97 Laboratory Results Laboratory Results - last 24 hr 05/05/21 05/05/21 05/05/21 14:59 14:59 14:59 WBC 6.85 RBC 4.31 Hgb 12.9 Hct 39.6 MCV 91.9 MCH 29.9 MCHC 32.6 RDW Std Deviation 43.9 RDW Coeff of Andrea 13.0 Plt Count 271 MPV 9.3 Immature Gran % (Auto) 0.1 Neut % (Auto) 51.6 Lymph % (Auto) 35.5 [place] % (Auto) 6.6 Eos % (Auto) 5.3 Baso % (Auto) 0.9 Neut # (Auto) 3.54 Lymph # (Auto) 2.43 [place] # (Auto) 0.45 Eos # (Auto) 0.36 Baso # (Auto) 0.06 Immature Gran # (Auto) 0.01 PT 10.1 INR 1.0 APTT 26.1 PTT Ratio 1.0 Sodium Potassium Chloride Carbon Dioxide Anion Gap BUN Creatinine Est Cr Clr Drug Dosing Est GFR ( Amer) Est GFR (Non-Af Amer) BUN/Creatinine Ratio Glucose POC Glucose Estimat Average Glucose Hemoglobin A1c Calcium Phosphorus Magnesium Total Bilirubin AST ALT Alkaline Phosphatase Troponin I Total Protein Albumin Globulin Albumin/Globulin Ratio Triglycerides Cholesterol LDL Cholesterol, Calc VLDL Cholesterol, Calc HDL Cholesterol Cholesterol/HDL Ratio Nasal Screen MRSA (PCR) SARS-CoV-2, RNA, NAAT Blood Type O Positive Antibody Screen NEGATIVE 05/05/21 05/05/21 05/05/21 14:59 14:59 15:19 WBC RBC Hgb Hct MCV MCH MCHC RDW Std Deviation RDW Coeff of Andrea Plt Count MPV Immature Gran % (Auto) Neut % (Auto) Lymph % (Auto) [place] % (Auto) Eos % (Auto) Baso % (Auto) Neut # (Auto) Lymph # (Auto) [place] # (Auto) Eos # (Auto) Baso # (Auto) Immature Gran # (Auto) PT INR APTT PTT Ratio Sodium 135 L Potassium 3.8 Chloride 103 Carbon Dioxide 26 Anion Gap 6 BUN 18 Creatinine 0.87 Est Cr Clr Drug Dosing 78.5 Est GFR ( Amer) 86.9 Est GFR (Non-Af Amer) 75.0 BUN/Creatinine Ratio 20.7 H Glucose 85 POC Glucose 87 Estimat Average Glucose Hemoglobin A1c Calcium 8.8 Phosphorus Magnesium 2.0 Total Bilirubin 0.4 AST 18 ALT 13 Alkaline Phosphatase 49 Troponin I < 0.03 Total Protein 7.0 Albumin 4.0 Globulin 3.0 Albumin/Globulin Ratio 1.3 Triglycerides Cholesterol LDL Cholesterol, Calc VLDL Cholesterol, Calc HDL Cholesterol Cholesterol/HDL Ratio Nasal Screen MRSA (PCR) SARS-CoV-2, RNA, NAAT NEGATIVE Blood Type Antibody Screen 05/05/21 05/06/21 05/06/21 19:23 01:07 05:55 WBC RBC Hgb Hct MCV MCH MCHC RDW Std Deviation RDW Coeff of Andrea Plt Count MPV Immature Gran % (Auto) Neut % (Auto) Lymph % (Auto) [place] % (Auto) Eos % (Auto) Baso % (Auto) Neut # (Auto) Lymph # (Auto) [place] # (Auto) Eos # (Auto) Baso # (Auto) Immature Gran # (Auto) PT INR APTT PTT Ratio Sodium Potassium Chloride Carbon Dioxide Anion Gap BUN Creatinine Est Cr Clr Drug Dosing Est GFR ( Amer) Est GFR (Non-Af Amer) BUN/Creatinine Ratio Glucose POC Glucose 148 H Estimat Average Glucose 120 Hemoglobin A1c 5.8 H Calcium Phosphorus Magnesium Total Bilirubin AST ALT Alkaline Phosphatase Troponin I Total Protein Albumin Globulin Albumin/Globulin Ratio Triglycerides Cholesterol LDL Cholesterol, Calc VLDL Cholesterol, Calc HDL Cholesterol Cholesterol/HDL Ratio Nasal Screen MRSA (PCR) Negative SARS-CoV-2, RNA, NAAT Blood Type Antibody Screen 05/06/21 05/06/21 05/06/21 05:55 05:55 11:09 WBC 10.96 H RBC 4.68 Hgb 14.2 Hct 42.5 MCV 90.8 MCH 30.3 MCHC 33.4 RDW Std Deviation 43.2 RDW Coeff of Andrea 13.0 Plt Count 275 MPV 9.3 Immature Gran % (Auto) 0.2 Neut % (Auto) 70.5 Lymph % (Auto) 20.3 [place] % (Auto) 6.8 Eos % (Auto) 1.6 Baso % (Auto) 0.6 Neut # (Auto) 7.73 H Lymph # (Auto) 2.22 [place] # (Auto) 0.75 H Eos # (Auto) 0.17 Baso # (Auto) 0.07 Immature Gran # (Auto) 0.02 PT INR APTT PTT Ratio Sodium 138 Potassium 4.3 Chloride 104 Carbon Dioxide 28 Anion Gap 6 BUN 12 Creatinine 0.83 Est Cr Clr Drug Dosing 82.3 Est GFR ( Amer) 92.0 Est GFR (Non-Af Amer) 79.4 BUN/Creatinine Ratio 14.5 Glucose 106 H POC Glucose 124 H Estimat Average Glucose Hemoglobin A1c Calcium 9.1 Phosphorus 4.2 Magnesium 2.0 Total Bilirubin AST ALT Alkaline Phosphatase Troponin I Total Protein Albumin Globulin Albumin/Globulin Ratio Triglycerides 78 Cholesterol 168 LDL Cholesterol, Calc 85 VLDL Cholesterol, Calc 16 HDL Cholesterol 67 Cholesterol/HDL Ratio 2.5 Nasal Screen MRSA (PCR) SARS-CoV-2, RNA, NAAT Blood Type Antibody Screen Diagnostic Findings Echocardiogram 05/06/2021 The left ventricle is normal in size There is normal left ventricular wall thickness There is focal akinesis to dyskinesis of the LV apex in a pattern consistent with apical ballooning cardiomyopathy. Mural thrombus not identified EF 45 to 50% There is no significant valvular disease Interatrial septum is intact by agitated saline contrast injection ECG Additional Comments: EKG 05/06/2021: Atrial flutter at 96 bpm, poor progression across the entry pre cordial leads no acute ST segment abnormalities
[2021-05-06] MEDS: ASPIRIN 81 MG ECTAB PO SCH (16:43)
[2021-05-06] MEDS: ATORVASTATIN 40 MG TAB PO SCH (16:43)
[2021-05-06] MEDS ORDERED: HEPARIN SOD 5,000 UNIT/0.5 ML VIAL SQ SCH (17:00)
--- NOTE | 2021-05-06 17:58 | CT Scan Report ---
CT SCAN OF THE BRAIN WITHOUT IV CONTRAST CLINICAL HISTORY: Follow-up stroke COMPARISON STUDY: CT and MRI of the brain dated 05/05/2021. TECHNIQUE: Unenhanced axial CT scan of the brain is performed from the vertex to the skull base. A d ose lowering technique was utilized adhering to the principles of ALARA. CT DOSE: 537.48 mGy.cm FINDINGS: Brain parenchyma: There is a 1.3 cm focus of low attenuation centered in the left thalamus image #14 consistent with an evolving infarct. A small focus of right parietal encephalomalacia is consistent w ith a remote infarct. There is no hemorrhage or mass effect. No extra-axial fluid collection is seen. Ventricles, sulci, cisterns: Normal in configuration. Intracranial vasculature: The visualized intracranial vasculature at the skull base is normal in appe arance. Calvarium: Unremarkable. Sinuses and mastoids: The visualized paranasal sinuses are clear. The mastoid air cells are well pneu matized. Orbits: The bony orbits are grossly intact. IMPRESSION: 1. There is no evolving lacunar infarct identified in the left thalamus. 2. No new foci of acute ischemia are suspected by CT criteria. 3. There is no hemorrhage or mass effect. ACT 112: Negative or not required by law. Electronically signed by: Holden Delgado M.D. 05/06/2021 5:57 PM
--- NOTE | 2021-05-06 18:19 | Hospitalist Progress Note ---
Date of Service May 06, 2021 Assessment & Plan (1) CVA (cerebral vascular accident): Plan: Patient presented with expressive aphasia, slurred speech, right upper extremity weakness, and right facial droop, as well as diplopia (left lateral gaze) possibly more chronic than acute. Decreased visual acuity in left eye. 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 twice daily this evening -Continue aspirin 81 mg daily -Start atorvastatin 80 mg daily, lipid panel good but needs high intensity statin -Increasing metoprolol to 50 mg daily for rapid atrial flutter as below -Hemoglobin A1c at 5.8% in the prediabetes range -Continue neurochecks, NIH stroke scale-now 0 -Appreciate PT/OT consultations-able to return home without services (2) Paroxysmal atrial flutter: Plan: With rapid atrial flutter here with rates in the 140s -Increase Toprol-XL to 50 mg daily for rate control -Starting Eliquis 5 mg p.o. twice daily this evening, 24 hours status post thrombolytics [id number] 2 score is 1 prior to this event, but now is 3-high risk Appreciate cardiology consultation Follow-up with cardiology as an outpatient Continue to monitor on telemetry (3) Hyperlipidemia: Plan: As above, starting atorvastatin (4) Tobacco abuse: Plan: Quit many years ago (5) NENA (obstructive sleep apnea): Plan: Continue CPAP HS (6) Pulmonary nodule: Plan: Noted to have a 1.1 cm right lower lobe nodular opacity on CT angiogram of the chest performed for chest pain Radiology suspects it seems infectious in appearance, but a pulmonary nodule could appear similar Follow-up chest CT in 3 months (7) Prediabetes: Plan: Hemoglobin A1c 5.8% as above Needs weight loss and dietary changes Plan: VTE prophylaxis -Eliquis Disposition-downgrade out of ICU to PCU, likely discharge home tomorrow if atrial flutter under better control Admission and Anticipated Discharge Date Admission Date: May 05, 2021 Subjective Patient feeling better, able to speak and no further weakness on the right side. Denies chest pain or shortness of breath. She does feel heart palpitations. She reports she has been feeling heart palpitations and noticing her heart beating fast sometimes for several weeks at a time with a device at home that she puts her finger on. This has been going on for many months. Discussed her case with neurology this morning. Telemetry with atrial flutter with rates in the 140s this morning and then into the 90s to low 100s after an increased dose of metoprolol Review of Systems Review of Systems: All systems reviewed & are unremarkable except as noted in HPI & below Physical Exam Constitutional: WD/WN, vitals as above Eyes: PERRL, conjunctivae normal, anicteric sclerae ENMT: external ear and nose normal, oropharynx normal Neck: trachea midline, no thyromegaly Respiratory: normal respiratory effort, lungs clear to auscultation Cardiovascular: Rate/Rhythm: regular rate and + irregularly irregular Heart Sounds: no murmur Chest (Breasts): Chest: normal inspection of chest Gastrointestinal (Abdomen): normal bowel sounds, soft, nontender, no hepatosplenomegaly Musculoskeletal: Extremities: extremities normal to inspection; no cyanosis and no clubbing Skin: no rashes, warm and dry Neurologic: moves all extremities and awake; no focal motor deficits Psychiatric: A+Ox3, euthymic affect Lymphatic: no lymphedema Results & Data Results & Data ([facility]) Vital Signs (Past 12 Hours) Vital Signs Temp Pulse Pulse Resp BP BP Pulse Ox 05/06/21 16:19 88 23 121/88 95 05/06/21 15:19 101 H 21 125/86 96 05/06/21 14:19 110 H 22 121/91 96 05/06/21 13:19 104 H 22 118/87 96 05/06/21 12:19 36.8 C 100 H 21 125/93 96 05/06/21 11:19 111 H 19 116/88 95 05/06/21 10:30 112 H 16 114/78 96 05/06/21 10:20 107 H 19 95 05/06/21 10:19 93 H 114/78 95 05/06/21 10:10 97 H 20 110/76 97 05/06/21 10:00 125 H 20 96 05/06/21 09:53 125 H 15 05/06/21 09:40 108 H 23 94 05/06/21 09:30 107 H 17 121/89 94 05/06/21 09:20 132 H 16 136/94 95 05/06/21 09:19 36.8 C 101 H 24 136/94 96 05/06/21 09:10 115 H 16 92 05/06/21 09:00 104 H 19 153/99 H 96 05/06/21 08:50 95 H 22 135/86 96 05/06/21 08:40 96 H 21 96 05/06/21 08:30 104 H 20 134/96 94 05/06/21 08:20 92 H 21 95 05/06/21 08:10 106 H 18 130/82 95 05/06/21 08:00 94 H 18 145/90 H 94 05/06/21 07:50 107 H 15 95 05/06/21 07:40 102 H 18 96 05/06/21 07:30 89 21 113/78 95 05/06/21 07:20 83 17 124/85 95 05/06/21 07:10 99 H 20 96 05/06/21 07:00 87 19 93 Laboratory Results 05/06/21 05/06/21 05/06/21 Range/Units 11:09 05:55 05:55 WBC 10.96 H (4.8-10.8) K/uL RBC 4.68 (4.2-5.4) M/uL Hgb 14.2 (12.0-16.0) g/dL Hct 42.5 (37-47) % MCV 90.8 (80-100) fL MCH 30.3 (25-34) pg MCHC 33.4 (32-36) g/dL RDW Std Deviation 43.2 (36.4-46.3) fL RDW Coeff of Andrea 13.0 (11.5-14.5) % Plt Count 275 (130-400) K/uL MPV 9.3 (7.4-10.4) fL Immature Gran % (Auto) 0.2 % Neut % (Auto) 70.5 % Lymph % (Auto) 20.3 % Holt % (Auto) 6.8 % Eos % (Auto) 1.6 % Baso % (Auto) 0.6 % Neut # (Auto) 7.73 H (1.4-6.5) K/uL Lymph # (Auto) 2.22 (1.2-3.4) K/uL Holt # (Auto) 0.75 H (0.11-0.59) K/uL Eos # (Auto) 0.17 (0-0.5) K/uL Baso # (Auto) 0.07 (0-0.2) K/uL Immature Gran # (Auto) 0.02 (0.00-0.02) K/uL Sodium 138 (136-145) mmol/L Potassium 4.3 (3.5-5.1) mmol/L Chloride 104 (98-107) mmol/L Carbon Dioxide 28 (21-32) mmol/L Anion Gap 6 (3-11) BUN 12 (6-23) mg/dl Creatinine 0.83 (0.6-1.2) mg/dl Est Cr Clr Drug Dosing 82.3 ml/min Est GFR ( Amer) 92.0 ml/min Est GFR (Non-Af Amer) 79.4 ml/min BUN/Creatinine Ratio 14.5 (10-20) Glucose 106 H (70-99(Fasting)) mg/dl POC Glucose 124 H (70-99) mg/dl Estimat Average Glucose mg/dl Hemoglobin A1c (4.5-5.6) % Calcium 9.1 (8.5-10.1) mg/dl Phosphorus 4.2 (2.5-4.9) mg/dl Magnesium 2.0 (1.7-2.4) mg/dl Triglycerides 78 (0-150) mg/dl Cholesterol 168 (0-200) mg/dl LDL Cholesterol, Calc 85 mg/dl VLDL Cholesterol, Calc 16 mg/dl HDL Cholesterol 67 mg/dl Cholesterol/HDL Ratio 2.5 (0-5) Nasal Screen MRSA (PCR) (Negative) 05/06/21 05/06/21 05/05/21 Range/Units 05:55 01:07 19:23 WBC (4.8-10.8) K/uL RBC (4.2-5.4) M/uL Hgb (12.0-16.0) g/dL Hct (37-47) % MCV (80-100) fL MCH (25-34) pg MCHC (32-36) g/dL RDW Std Deviation (36.4-46.3) fL RDW Coeff of Andrea (11.5-14.5) % Plt Count (130-400) K/uL MPV (7.4-10.4) fL Immature Gran % (Auto) % Neut % (Auto) % Lymph % (Auto) % Holt % (Auto) % Eos % (Auto) % Baso % (Auto) % Neut # (Auto) (1.4-6.5) K/uL Lymph # (Auto) (1.2-3.4) K/uL Holt # (Auto) (0.11-0.59) K/uL Eos # (Auto) (0-0.5) K/uL Baso # (Auto) (0-0.2) K/uL Immature Gran # (Auto) (0.00-0.02) K/uL Sodium (136-145) mmol/L Potassium (3.5-5.1) mmol/L Chloride (98-107) mmol/L Carbon Dioxide (21-32) mmol/L Anion Gap (3-11) BUN (6-23) mg/dl Creatinine (0.6-1.2) mg/dl Est Cr Clr Drug Dosing ml/min Est GFR ( Amer) ml/min Est GFR (Non-Af Amer) ml/min BUN/Creatinine Ratio (10-20) Glucose (70-99(Fasting)) mg/dl POC Glucose 148 H (70-99) mg/dl Estimat Average Glucose 120 mg/dl Hemoglobin A1c 5.8 H (4.5-5.6) % Calcium (8.5-10.1) mg/dl Phosphorus (2.5-4.9) mg/dl Magnesium (1.7-2.4) mg/dl Triglycerides (0-150) mg/dl Cholesterol (0-200) mg/dl LDL Cholesterol, Calc mg/dl VLDL Cholesterol, Calc mg/dl HDL Cholesterol mg/dl Cholesterol/HDL Ratio (0-5) Nasal Screen MRSA (PCR) Negative (Negative) Diagnostic Findings Head CT 05/06/21 15:05 CT SCAN OF THE BRAIN WITHOUT IV CONTRAST CLINICAL HISTORY: Follow-up stroke COMPARISON STUDY: CT and MRI of the brain dated 05/05/2021. TECHNIQUE: Unenhanced axial CT scan of the brain is performed from the vertex to the skull base. A dose lowering technique was utilized adhering to the principles of ALARA. CT DOSE: 537.48 mGy.cm FINDINGS: Brain parenchyma: There is a 1.3 cm focus of low attenuation centered in the left thalamus image #14 consistent with an evolving infarct. A small focus of right parietal encephalomalacia is consistent with a remote infarct. There is no hemorrhage or mass effect. No extra-axial fluid collection is seen. Ventricles, sulci, cisterns: Normal in configuration. Intracranial vasculature: The visualized intracranial vasculature at the skull base is normal in appearance. Calvarium: Unremarkable. Sinuses and mastoids: The visualized paranasal sinuses are clear. The mastoid air cells are well pneumatized. Orbits: The bony orbits are grossly intact. IMPRESSION: 1. There is no evolving lacunar infarct identified in the left thalamus. 2. No new foci of acute ischemia are suspected by CT criteria. 3. There is no hemorrhage or mass effect. ACT 112: Negative or not required by law. Electronically signed by: Holden Delgado M.D. 05/06/2021 5:57 PM PG Care Time/CCT Total # of Minutes Spent Total Time Spent with Patient: Total time spent is greater than 50% in coordination of care (as documented) at patient's floor/unit and/or counseling patient: Coding Level of Care Code 20965 Subseq Hosp Care Lvl 3 Diagnoses CVA (cerebral vascular accident) I63.9 Hyperlipidemia E78.5 Tobacco abuse Z72.0 NENA (obstructive sleep apnea) G47.33 Paroxysmal atrial flutter I48.92 Pulmonary nodule R91.1 Prediabetes R73.03
[2021-05-06] MEDS: APIXABAN 2.5 MG TAB PO SCH (20:08)
[2021-05-07 05:42] LABS: Basophils # (auto) 0.08 K/uL (0-0.2); Eosinophils # (auto) 0.33 K/uL (0-0.5); Hematocrit (blood only) 46.4 % (37-47); Hemoglobin 15.1 g/dL (12.0-16.0); Immature Granulocytes # (auto) 0.01 K/uL (0.00-0.02); Immature Granulocytes % (auto) 0.1 %; Lymphocytes # (auto) 2.73 K/uL (1.2-3.4); Lymphocytes % (auto) 33.5 %; Mean Corpuscular Hemoglobin 30.1 pg (25-34); Mean Corpuscular Hgb Conc 32.5 g/dL (32-36); Mean Corpuscular Volume 92.4 fL (80-100); Mean Platelet Volume 9.6 fL (7.4-10.4); Monocytes # (auto) 0.71 K/uL (0.11-0.59); Monocytes % (auto) 8.7 %; Neutrophils % (auto) 52.7 %; Platelet Count 279 K/uL (130-400); RDW Coefficient of Variation 13.2 % (11.5-14.5); RDW Standard Deviation 44.4 fL (36.4-46.3); Red Blood Count 5.02 M/uL (4.2-5.4); White Blood Count 8.16 K/uL (4.8-10.8)
[2021-05-07 06:02] LABS: BUN Creatinine Ratio 17.2 (10-20); Calcium 9.3 mg/dl (8.5-10.1); Est GFR (African American) 74.4 ml/min; Est GFR (Non-African American) 64.2 ml/min; Magnesium 2.1 mg/dl (1.7-2.4); Phosphorus 3.4 mg/dl (2.5-4.9); Potassium 4.5 mmol/L (3.5-5.1)
--- NOTE | 2021-05-07 07:41 | Electrocardiogram Report ---
Test Reason : Blood Pressure : / mmHG Vent. Rate : 066 BPM Atrial Rate : 066 BPM P-R Int : 152 ms QRS Dur : 080 ms QT Int : 438 ms P-R-T Axes : 048 -21 028 degrees QTc Int : 459 ms Sinus rhythm with Premature atrial complexes Low voltage QRS Borderline ECG When compared with ECG of 05-MAY-2021 14:51, Premature atrial complexes are now Present Nonspecific T wave abnormality no longer evident in Anterior leads Confirmed by Vitor Navarro ([id number]) on 05/07/2021 7:40:38 AM Referred By: REFERRED SELF Confirmed By:Kojo Navarro
[2021-05-07] MEDS: FAMOTIDINE 20 MG TAB PO SCH (08:06)
[2021-05-07] MEDS: APIXABAN 2.5 MG TAB PO SCH ×2 (08:06→20:53)
[2021-05-07] MEDS: ATORVASTATIN 40 MG TAB PO SCH (08:07)
[2021-05-07] MEDS: ASPIRIN 81 MG ECTAB PO SCH (08:07)
[2021-05-07] MEDS ORDERED: METOPROLOL SUCC 50MG EXT REL TAB PO SCH (09:00)
--- NOTE | 2021-05-07 11:45 | Hospitalist Progress Note ---
Date of Service May 07, 2021 Assessment & Plan (1) CVA (cerebral vascular accident): Plan: Patient presented with expressive aphasia, slurred speech, right upper extremity weakness, and right facial droop, as well as diplopia (left lateral gaze) possibly more chronic than acute. Decreased visual acuity in left eye. 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 twice daily -Continue aspirin 81 mg daily -Started atorvastatin 80 mg daily, lipid panel good but needs high intensity statin. Follow lipids and LFTs in 6 weeks -Increased metoprolol to 50 mg daily for rapid atrial flutter as below, but now adding Sotalol -Hemoglobin A1c at 5.8% in the prediabetes range -Continue neurochecks, NIH stroke scale-now 0 -Appreciate PT/OT consultations-able to return home without services (2) Paroxysmal atrial flutter: Plan: With rapid atrial flutter here with rates in the 140s initially, now rates slightly improved to low 100s with increased metoprolol dosing But has poor exerise tolerance with Aflutter Appreciate Cardiology consult-plan to start Sotalol -follow daily ECG -Increased Toprol-XL to 50 mg daily for rate control, but may dc now that starting Sotalol? Defer to Cardio -Started Eliquis 5 mg p.o. twice daily after 24 hrs post TKNase [id number] 2 score is 1 prior to this event, but now is 3-high risk Appreciate cardiology consultation Follow-up with cardiology as an outpatient Continue to monitor on telemetry (3) Hyperlipidemia: Plan: As above, started atorvastatin (4) Tobacco abuse: Plan: Quit many years ago, only smoked occasionally in her 20-30s (5) NENA (obstructive sleep apnea): Plan: Continue CPAP HS (6) Pulmonary nodule: Plan: Noted to have a 1.1 cm right lower lobe nodular opacity on CT angiogram of the chest performed for chest pain Radiology suspects it seems infectious in appearance, but a pulmonary nodule could appear similar Follow-up chest CT in 3 months Discussed this with patient (7) Prediabetes: Plan: Hemoglobin A1c 5.8% as above Needs weight loss and dietary changes-discussed with patient Plan: VTE prophylaxis -Eliquis Disposition-continued stay in PCU Also, pt reports she is switching to a [facility] PCP, Myranda Miranda, in the near future. Will ask [facility] Nurse Navigator to arrange outpt f/u at time of discharge Admission and Anticipated Discharge Date Admission Date: May 05, 2021 Subjective Pt has no complaints. Denies CP, SOB, lightheadedness. She has been getting out of bed and walking to the bathroom and her chair independently.Denies any cough or fevers prior to admission. Discussed the suspected pulm nodule on CT Chest and need for f/u after discharge. Tele with atrial flutter with rates still in low 100s at rest. Review of Systems Review of Systems: All systems reviewed & are unremarkable except as noted in HPI & below no vaginal bleeding, no hematuria, hematochezia Physical Exam Constitutional: WD/WN, vitals as above Eyes: + anicteric sclerae Neck: trachea midline, no thyromegaly Respiratory: normal respiratory effort, lungs clear to auscultation Cardiovascular: Rate/Rhythm: regular rate and + irregularly irregular Heart Sounds: no murmur Chest (Breasts): Chest: normal inspection of chest Gastrointestinal (Abdomen): normal bowel sounds, soft, nontender, no hepatosplenomegaly Musculoskeletal: Extremities: extremities normal to inspection; no cyanosis and no clubbing Skin: no rashes, warm and dry Neurologic: moves all extremities and awake; no focal motor deficits Psychiatric: A+Ox3, euthymic affect Lymphatic: no lymphedema Results & Data Results & Data ([facility]) Vital Signs (Past 12 Hours) Vital Signs Temp Pulse Pulse Resp BP BP Pulse Ox 05/07/21 08:00 36.9 C 120 H 18 114/94 95 05/07/21 04:16 36.5 C 84 20 131/87 96 05/07/21 04:00 36.5 C 86 17 131/87 94 05/07/21 00:00 105 H 99 H 19 118/91 94 PG Care Time/CCT Total # of Minutes Spent Total Time Spent with Patient: Total time spent is greater than 50% in coordination of care (as documented) at patient's floor/unit and/or counseling patient: Coding Level of Care Code 30874 Subseq Hosp Care Lvl 3 Diagnoses CVA (cerebral vascular accident) I63.9 Paroxysmal atrial flutter I48.92 Hyperlipidemia E78.5 Tobacco abuse Z72.0 NENA (obstructive sleep apnea) G47.33 Pulmonary nodule R91.1 Prediabetes R73.03
--- NOTE | 2021-05-07 11:58 | Cardiology Progress Note ---
Date of Service May 07, 2021 Assessment & Plan (1) Thalamic stroke: (2) Paroxysmal atrial flutter: (3) Expressive aphasia: (4) NENA (obstructive sleep apnea): Plan: Patient is a 56-year-old female presented with an acute left thalamic stroke manifesting as weakness and expressive aphasia treated with thrombolytic therapy. Patient has past history of paroxysmal atrial flutter and lapsed into atrial flutter shortly after admission. Echocardiogram this morning demonstrates apical ballooning cardiomyopathy phenomena. Patient currently asymptomatic heart rates 90-110 in atrial flutter. Issues are addressed as follows 1. Acute left thalamic stroke likely thromboembolic 2. Paroxysmal atrial flutter with patient currently in atrial flutter with elevated ventricular response rate 3. Echocardiographic findings of apical ballooning cardiomyopathy likely due to acute neurologic event Plan: Anticoagulation initiated with Eliquis and tolerating. Heart rates remain elevated in atrial flutter. Patient in the past has had paroxysms and suspect will continue to do so unless rhythm control. We will cautiously initiate sotalol, discontinue metoprolol succinate Maintain telemetry minimum 48 hours, daily EKGs with EKG later today prior to second dose of sotalol Repeat echocardiogram this admission Cardiology will continue to follow Admission and Anticipated Discharge Date Admission Date: May 05, 2021 Subjective Patient was seen and examined, chart, medications, telemetry reviewed. No complaints this morning ambulatory in room. She remains in atrial flutter with elevated ventricular response rates. No chest pain or shortness of breath. No bleeding difficulties after Eliquis resumed. Review of Systems Review of Systems: All systems reviewed & are unremarkable except as noted in Subjective Physical Exam Constitutional: WD/WN, vitals as above Eyes: PERRL, conjunctivae normal, anicteric sclerae ENMT: external ear and nose normal, oropharynx normal Neck: trachea midline, no thyromegaly Respiratory: normal respiratory effort, lungs clear to auscultation Cardiovascular: Rate/Rhythm: + tachycardic and + irregularly irregular Heart Sounds: normal S1 and normal S2; no gallop and no murmur Palpation: normal PMI Vessels: normal carotid upstroke and radial pulses present; no JVD and no carotid bruit Extremities: no edema Gastrointestinal (Abdomen): normal bowel sounds, soft, nontender, no hepatosplenomegaly Musculoskeletal: no cyanosis or clubbing, extremities motor strength 5/5 Skin: no rashes, warm and dry Neurologic: PERRL, EOMI, accommodation nl, no face palsy, no dysarthria Psychiatric: A+Ox3, euthymic affect Results & Data ([facility]) Vital Signs (Past 12 Hours) Vital Signs Temp Pulse Pulse Resp BP BP Pulse Ox 05/07/21 08:00 36.9 C 120 H 18 114/94 95 05/07/21 04:16 36.5 C 84 20 131/87 96 05/07/21 04:00 36.5 C 86 17 131/87 94 05/07/21 00:00 105 H 99 H 19 118/91 94 Laboratory Results Laboratory Results - last 24 hr 05/07/21 05/07/21 05:24 05:24 WBC 8.16 RBC 5.02 Hgb 15.1 Hct 46.4 MCV 92.4 MCH 30.1 MCHC 32.5 RDW Std Deviation 44.4 RDW Coeff of Andrea 13.2 Plt Count 279 MPV 9.6 Immature Gran % (Auto) 0.1 Neut % (Auto) 52.7 Lymph % (Auto) 33.5 Humphreys % (Auto) 8.7 Eos % (Auto) 4.0 Baso % (Auto) 1.0 Neut # (Auto) 4.30 Lymph # (Auto) 2.73 Humphreys # (Auto) 0.71 H Eos # (Auto) 0.33 Baso # (Auto) 0.08 Immature Gran # (Auto) 0.01 Sodium 138 Potassium 4.5 Chloride 104 Carbon Dioxide 30 Anion Gap 4 BUN 17 Creatinine 0.99 Est Cr Clr Drug Dosing 69.0 Est GFR ( Amer) 74.4 Est GFR (Non-Af Amer) 64.2 BUN/Creatinine Ratio 17.2 Glucose 111 H Calcium 9.3 Phosphorus 3.4 Magnesium 2.1
[2021-05-07] MEDS ORDERED: SOTALOL HCL 80 MG TAB PO ONE (12:00)
[2021-05-07] MEDS: SOTALOL HCL 80 MG TAB PO SCH (20:53)
[2021-05-08 04:48] LABS: Basophils # (auto) 0.06 K/uL (0-0.2); Basophils % (auto) 0.7 %; Eosinophils # (auto) 0.45 K/uL (0-0.5); Eosinophils % (auto) 5.1 %; Hematocrit (blood only) 43.9 % (37-47); Hemoglobin 14.3 g/dL (12.0-16.0); Immature Granulocytes # (auto) 0.01 K/uL (0.00-0.02); Immature Granulocytes % (auto) 0.1 %; Lymphocytes # (auto) 3.12 K/uL (1.2-3.4); Lymphocytes % (auto) 35.2 %; Mean Corpuscular Hgb Conc 32.6 g/dL (32-36); Mean Platelet Volume 9.6 fL (7.4-10.4); Monocytes # (auto) 0.72 K/uL (0.11-0.59); Monocytes % (auto) 8.1 %; Neutrophils % (auto) 50.8 %; Platelet Count 290 K/uL (130-400); RDW Coefficient of Variation 12.9 % (11.5-14.5); RDW Standard Deviation 43.3 fL (36.4-46.3); Red Blood Count 4.77 M/uL (4.2-5.4); White Blood Count 8.86 K/uL (4.8-10.8)
[2021-05-08 05:15] LABS: BUN Creatinine Ratio 19.1 (10-20); Calcium 8.7 mg/dl (8.5-10.1); Creatinine Clr Calc Pharmacy 76.8 ml/min; Est GFR (African American) 84.6 ml/min; Magnesium 1.9 mg/dl (1.7-2.4); Phosphorus 3.3 mg/dl (2.5-4.9); Potassium 4.1 mmol/L (3.5-5.1)
[2021-05-08] MEDS ORDERED: MAGNESIUM SULFATE / D5W 1 GM/100 ML BAG IV ONE (08:14)
[2021-05-08] MEDS: FAMOTIDINE 20 MG TAB PO SCH (09:06)
[2021-05-08] MEDS: ATORVASTATIN 40 MG TAB PO SCH (09:06)
[2021-05-08] MEDS: APIXABAN 2.5 MG TAB PO SCH ×2 (09:06→20:09)
[2021-05-08] MEDS: ASPIRIN 81 MG ECTAB PO SCH (09:06)
[2021-05-08] MEDS: SOTALOL HCL 80 MG TAB PO SCH ×2 (09:26→20:08)
--- NOTE | 2021-05-08 09:48 | Electrocardiogram Report ---
Test Reason : Blood Pressure : / mmHG Vent. Rate : 079 BPM Atrial Rate : 316 BPM P-R Int : 000 ms QRS Dur : 084 ms QT Int : 476 ms P-R-T Axes : 000 -44 257 degrees QTc Int : 545 ms Atrial flutter with variable A-V block Left axis deviation T wave abnormality, consider inferior ischemia T wave abnormality, consider anterolateral ischemia Prolonged QT Abnormal ECG When compared with ECG of 07-MAY-2020 20:36, (unconfirmed) No significant change was found Confirmed by Vitor Navarro ([id number]) on 05/08/2021 9:47:44 AM Referred By: REFERRED SELF Confirmed By:Kojo Navarro
--- NOTE | 2021-05-08 09:51 | Cardiology Progress Note ---
Date of Service May 08, 2021 Assessment & Plan (1) Thalamic stroke: (2) Paroxysmal atrial flutter: (3) Expressive aphasia: (4) NENA (obstructive sleep apnea): Plan: Patient is a 56-year-old female presented with an acute left thalamic stroke manifesting as weakness and expressive aphasia treated with thrombolytic therapy. Patient has past history of paroxysmal atrial flutter and lapsed into atrial flutter shortly after admission. Echocardiogram this morning demonstrates apical ballooning cardiomyopathy phenomena. Patient currently asymptomatic heart rates 90-110 in atrial flutter. Issues are addressed as follows 1. Acute left thalamic stroke likely thromboembolic 2. Paroxysmal atrial flutter with patient currently in atrial flutter with elevated ventricular response rate 3. Echocardiographic findings of apical ballooning cardiomyopathy likely due to acute neurologic event Plan: Anticoagulation initiated with Eliquis and tolerating. QT slightly increased but without ventricular arrhythmias or significant ectopy repeat EKG this afternoon prior to sotalol dosing continue tele and daily ekg's follow and replete lytes as necessary will refer back to electrophysiology as an outpatient for ablation Repeat echocardiogram in Am Cardiology will continue to follow Admission and Anticipated Discharge Date Admission Date: May 05, 2021 Subjective Pt seen and examined, chart reviewed. Pt states that she feels well. No residual deficits. Minor palpitations. Denies cp, sob, lightheadedness or dizziness. tele reviewed: atrial flutter without arrhythmia or significant ventricular ectopy Review of Systems Review of Systems: All systems reviewed & are unremarkable except as noted in HPI & below Physical Exam Physical Exam: General: Awake, alert and oriented x 3. No acute distress. HEENT: Normocephalic, atraumatic. Pupils equal, round and reactive to light and accommodation. Extraocular muscles are intact. Anicteric sclera. Moist mucous membranes. Neck: No JVD. No bruit. Cardiovascular: irregularly irregular, unable to appreciate murmur, rub or gallop. Pulmonary: Clear to auscultation bilaterally. No rales, rhonchi, or wheezing. Abdomen: Bowel sounds x 4, soft. No rebound, guarding or tenderness. No organomegaly. Extremities: No clubbing, cyanosis or edema. +2 pedal pulses bilaterally. Skin: Warm and dry. Results & Data ([facility]) Vital Signs (Past 12 Hours) Vital Signs Temp Pulse Resp BP Pulse Ox 05/08/21 04:19 36.4 C L 68 18 98/74 L 95 05/07/21 23:38 36.4 C L 70 18 104/77 95
--- NOTE | 2021-05-08 10:03 | Electrocardiogram Report ---
Test Reason : Blood Pressure : / mmHG Vent. Rate : 086 BPM Atrial Rate : 357 BPM P-R Int : 000 ms QRS Dur : 078 ms QT Int : 420 ms P-R-T Axes : 081 -15 205 degrees QTc Int : 503 ms Atrial fibrillation Low voltage QRS Poor R wave progression, consider anterior OR vs. lead placement vs. LVH T wave abnormality, consider inferolateral ischemia Prolonged QT Abnormal ECG Confirmed by Vitor Navarro ([id number]) on 05/08/2021 10:03:01 AM Referred By: REFERRED SELF Confirmed By:Kojo Navarro
--- NOTE | 2021-05-08 10:05 | Electrocardiogram Report ---
Test Reason : Blood Pressure : / mmHG Vent. Rate : 086 BPM Atrial Rate : 357 BPM P-R Int : 000 ms QRS Dur : 078 ms QT Int : 410 ms P-R-T Axes : 000 -45 243 degrees QTc Int : 490 ms Atrial flutter with variable A-V block Left anterior fascicular block Prolonged QT Abnormal ECG When compared with ECG of 06-MAY-2020 00:23, Left anterior fascicular block is now Present T wave inversion now evident in Inferior leads T wave inversion now evident in Anterolateral leads Confirmed by Vitor Navarro ([id number] on 05/08/2021 10:05:02 AM Referred By: REFERRED SELF Confirmed By:Kojo Navarro
--- NOTE | 2021-05-08 16:41 | Hospitalist Progress Note ---
Date of Service May 08, 2021 Assessment & Plan (1) CVA (cerebral vascular accident): Plan: Patient presented with expressive aphasia, slurred speech, right upper extremity weakness, and right facial droop, as well as diplopia (left lateral gaze) possibly more chronic than acute. Decreased visual acuity in left eye. 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 twice daily -Continue aspirin 81 mg daily -Started atorvastatin 80 mg daily, lipid panel good but needs high intensity statin. Follow lipids and LFTs in 6 weeks -Increased metoprolol to 50 mg daily initially for rapid atrial flutter, but then it was discontinued in favor of sotalol as below -Hemoglobin A1c at 5.8% in the prediabetes range -Appreciate PT/OT consultations-able to return home without services -Plan to repeat echo before discharge (2) Paroxysmal atrial flutter: Plan: With rapid atrial flutter here with rates in the 140s initially, then rates slightly improved to low 100s with increased metoprolol dosing But has poor exercise tolerance with Aflutter as an outpatient-she has noticed rapid heart rates off and on for weeks at a time over the last year Appreciate Cardiology consult-started sotalol -Converted to normal sinus rhythm on the afternoon of 05/08 with rates in the 60s -follow ECG to check QTC -Started Eliquis 5 mg p.o. twice daily [id number] 2 score is 1 prior to this event, but now is 3-high risk Appreciate cardiology consultation Follow-up with cardiology as an outpatient and considering ablation as an outpat ient Continue to monitor on telemetry -If tolerating sotalol 80 mg p.o. twice daily by tomorrow, will discharge to home -Replace magnesium to keep at 2.0 or greater with 1 g IV magnesium sulfate Follow BMP and magnesium in the morning (3) Hyperlipidemia: Plan: As above, started atorvastatin (4) Cardiomyopathy: Plan: Echocardiogram with EF 45 to 50% and focal akinesis to dyskinesis of the LV apex and a pattern consistent with apical ballooning cardiomyopathy, ischemic origin not completely excluded, mural thrombus not identified, no interatrial shunt noted Likely due to a post stroke syndrome Cardiology recommends repeat echocardiogram prior to discharge (5) Tobacco abuse: Plan: Quit many years ago, only smoked occasionally in her 20-30s (6) NENA (obstructive sleep apnea): Plan: Continue CPAP HS (7) Pulmonary nodule: Plan: Noted to have a 1.1 cm right lower lobe nodular opacity on CT angiogram of the chest performed for chest pain Radiology suspects it seems infectious in appearance, but a pulmonary nodule could appear similar Follow-up chest CT in 3 months Discussed this with patient (8) Prediabetes: Plan: Hemoglobin A1c 5.8% as above Needs weight loss and dietary changes-discussed with patient (9) Contusion: Plan: Contusion of the right elbow and dorsal right foot/toes status post fall down the stairs around 1 week ago No tenderness to palpation, do not suspect fractures, no x-ray indicated She is able to ambulate independently without pain Plan: VTE prophylaxis -Eliquis Disposition-continued stay in PCU, but hopeful for discharge home tomorrow Also, pt reports she is switching to a [facility] PCP, Myranda Miranda, in the near future. Will ask [facility] Nurse Navigator to arrange outpt f/u at time of discharge Admission and Anticipated Discharge Date Admission Date: May 05, 2021 Subjective Feels a little tired. No CP or SOB, no nausea, is eating and drinking. No bleeding issues. Has some bruising on her right elbow and rt foot from a fall down a few stairs prior to admission. Denies weakness, numbness, no headache. -Converted to sinus rhythm about 20 minutes before I saw her after being in atrial flutter Review of Systems Review of Systems: All systems reviewed & are unremarkable except as noted in HPI & below Physical Exam Constitutional: WD/WN, vitals as above Eyes: + anicteric sclerae ENMT: external ear and nose normal, oropharynx normal Neck: trachea midline, no thyromegaly Respiratory: normal respiratory effort, lungs clear to auscultation Cardiovascular: Rate/Rhythm: regular rate and regular rhythm Heart Sounds: no murmur Chest (Breasts): Chest: normal inspection of chest Gastrointestinal (Abdomen): normal bowel sounds, soft, nontender, no hepatosplenomegaly Musculoskeletal: Extremities: + extremities abnormal to inspection ( bruising on right toes but no tenderness palpation over right foot), no cyanosis and no clubbing Skin: no rashes, warm and dry + ecchymosis (Right dorsal mid toes and right elbow) Neurologic: moves all extremities and awake; no focal motor deficits Psychiatric: A+Ox3, euthymic affect Lymphatic: no lymphedema Results & Data Results & Data ([facility]) Vital Signs (Past 12 Hours) Vital Signs Temp Pulse Resp BP Pulse Ox 05/08/21 12:16 36.6 C 71 15 106/76 94 05/08/21 09:09 81 15 92/67 L 94 Laboratory Results 05/08/21 05/08/21 Range/Units 04:23 04:23 WBC 8.86 (4.8-10.8) K/uL RBC 4.77 (4.2-5.4) M/uL Hgb 14.3 (12.0-16.0) g/dL Hct 43.9 (37-47) % MCV 92.0 (80-100) fL MCH 30.0 (25-34) pg MCHC 32.6 (32-36) g/dL RDW Std Deviation 43.3 (36.4-46.3) fL RDW Coeff of Andrea 12.9 (11.5-14.5) % Plt Count 290 (130-400) K/uL MPV 9.6 (7.4-10.4) fL Immature Gran % (Auto) 0.1 % Neut % (Auto) 50.8 % Lymph % (Auto) 35.2 % Luna % (Auto) 8.1 % Eos % (Auto) 5.1 % Baso % (Auto) 0.7 % Neut # (Auto) 4.50 (1.4-6.5) K/uL Lymph # (Auto) 3.12 (1.2-3.4) K/uL Luna # (Auto) 0.72 H (0.11-0.59) K/uL Eos # (Auto) 0.45 (0-0.5) K/uL Baso # (Auto) 0.06 (0-0.2) K/uL Immature Gran # (Auto) 0.01 (0.00-0.02) K/uL Sodium 138 (136-145) mmol/L Potassium 4.1 (3.5-5.1) mmol/L Chloride 106 (98-107) mmol/L Carbon Dioxide 27 (21-32) mmol/L Anion Gap 5 (3-11) BUN 17 (6-23) mg/dl Creatinine 0.89 (0.6-1.2) mg/dl Est Cr Clr Drug Dosing 76.8 ml/min Est GFR ( Amer) 84.6 ml/min Est GFR (Non-Af Amer) 73.0 ml/min BUN/Creatinine Ratio 19.1 (10-20) Glucose 95 (70-99(Fasting)) mg/dl Calcium 8.7 (8.5-10.1) mg/dl Phosphorus 3.3 (2.5-4.9) mg/dl Magnesium 1.9 (1.7-2.4) mg/dl PG Care Time/CCT Total # of Minutes Spent Total Time Spent with Patient: Total time spent is greater than 50% in coordination of care (as documented) at patient's floor/unit and/or counseling patient: Coding Level of Care Code 21395 Subseq Hosp Care Lvl 3 Diagnoses CVA (cerebral vascular accident) I63.9 Paroxysmal atrial flutter I48.92 Hyperlipidemia E78.5 Tobacco abuse Z72.0 NENA (obstructive sleep apnea) G47.33 Pulmonary nodule R91.1 Prediabetes R73.03 Cardiomyopathy I42.9 Contusion T14.8XXA
[2021-05-09 04:43] LABS: Basophils # (auto) 0.07 K/uL (0-0.2); Basophils % (auto) 0.8 %; Eosinophils # (auto) 0.42 K/uL (0-0.5); Eosinophils % (auto) 4.8 %; Hematocrit (blood only) 41.6 % (37-47); Hemoglobin 13.7 g/dL (12.0-16.0); Immature Granulocytes # (auto) 0.01 K/uL (0.00-0.02); Immature Granulocytes % (auto) 0.1 %; Lymphocytes # (auto) 3.02 K/uL (1.2-3.4); Lymphocytes % (auto) 34.8 %; Mean Corpuscular Hemoglobin 30.5 pg (25-34); Mean Corpuscular Hgb Conc 32.9 g/dL (32-36); Mean Corpuscular Volume 92.7 fL (80-100); Mean Platelet Volume 9.6 fL (7.4-10.4); Monocytes # (auto) 0.69 K/uL (0.11-0.59); Monocytes % (auto) 7.9 %; Neutrophils # (auto) 4.48 K/uL (1.4-6.5); Neutrophils % (auto) 51.6 %; Platelet Count 284 K/uL (130-400); RDW Coefficient of Variation 13.1 % (11.5-14.5); RDW Standard Deviation 44.1 fL (36.4-46.3); Red Blood Count 4.49 M/uL (4.2-5.4); White Blood Count 8.69 K/uL (4.8-10.8)
[2021-05-09 05:10] LABS: BUN Creatinine Ratio 24.1 (10-20); Calcium 8.9 mg/dl (8.5-10.1); Creatinine Clr Calc Pharmacy 86.4 ml/min; Est GFR (African American) 97.7 ml/min; Est GFR (Non-African American) 84.3 ml/min; Potassium 4.2 mmol/L (3.5-5.1)
[2021-05-09] MEDS: ATORVASTATIN 40 MG TAB PO SCH (07:58)
[2021-05-09] MEDS: SOTALOL HCL 80 MG TAB PO SCH (07:58)
[2021-05-09] MEDS: ASPIRIN 81 MG ECTAB PO SCH (07:58)
[2021-05-09] MEDS: FAMOTIDINE 20 MG TAB PO SCH (07:58)
[2021-05-09] MEDS: APIXABAN 2.5 MG TAB PO SCH (07:58)
--- NOTE | 2021-05-09 08:32 | Cardiology Progress Note ---
Date of Service May 09, 2021 Assessment & Plan (1) Thalamic stroke: (2) Paroxysmal atrial flutter: (3) Expressive aphasia: (4) NENA (obstructive sleep apnea): Plan: Patient is a 56-year-old female presented with an acute left thalamic stroke manifesting as weakness and expressive aphasia treated with thrombolytic therapy. Patient has past history of paroxysmal atrial flutter and lapsed into atrial flutter shortly after admission. Echocardiogram this morning demonstrates apical ballooning cardiomyopathy phenomena. Patient currently asymptomatic heart rates 90-110 in atrial flutter. Issues are addressed as follows 1. Acute left thalamic stroke likely thromboembolic 2. Paroxysmal atrial flutter with patient currently in atrial flutter with elevated ventricular response rate 3. Echocardiographic findings of apical ballooning cardiomyopathy likely due to acute neurologic event Plan: Anticoagulation initiated with Eliquis and tolerating. Spontaneously converted to sinus last PM QTc stable at 454 ms, no ventricular arrhythmias or ectopy on monitor Sixth dose will be the PM dose given her response to the sotalol without issue and her desire for discharge, I believe it would be reasonable to give PM dose at 1600 and check ekg at 1700 if QTc remains stable, ok for discharge at that time my office will call to arrange follow up with me in a few weeks Apical ballooning and function improving I suspect this was catecholamine induced given clinical context unfortunately, unable to start GDMT given hypotension will follow as an outpatient Admission and Anticipated Discharge Date Admission Date: May 05, 2021 Subjective Pt seen and examined, chart reviewed. Feels well. Anxious for discharge. Denies cp, sob, palpitations or lightheadedness. Tele: converted to sinus rhythm last PM EKG: sinus, QTc of 454 ms Review of Systems Review of Systems: All systems reviewed & are unremarkable except as noted in HPI & below Physical Exam Physical Exam: General: Awake, alert and oriented x 3. No acute distress. HEENT: Normocephalic, atraumatic. Pupils equal, round and reactive to light and accommodation. Extraocular muscles are intact. Anicteric sclera. Moist mucous membranes. Neck: No JVD. No bruit. Cardiovascular: Regular. Positive S-4. Normal S-1 and S-2. No S-3. No murmurs or rubs. Pulmonary: Clear to auscultation B/L. No rales, rhonchi or wheezing Abdomen: Bowel sounds x 4, soft. No rebound, guarding or tenderness. No organomegaly. Extremities: No clubbing, cyanosis or edema. +2 pedal pulses bilaterally. Skin: Warm and dry. Results & Data ([facility]) Vital Signs (Past 12 Hours) Vital Signs Temp Pulse Resp BP Pulse Ox 05/09/21 07:46 36.4 C L 63 21 96/68 L 98 05/09/21 04:08 36.6 C 63 16 94/67 L 96 05/09/21 00:10 36.5 C 65 24 101/68 95 05/08/21 21:07 36.3 C L 65 20 101/71 94
--- NOTE | 2021-05-09 12:21 | Electrocardiogram Report ---
Test Reason : Blood Pressure : / mmHG Vent. Rate : 064 BPM Atrial Rate : 064 BPM P-R Int : 150 ms QRS Dur : 084 ms QT Int : 472 ms P-R-T Axes : 054 -19 069 degrees QTc Int : 486 ms Normal sinus rhythm T wave abnormality, consider anterolateral ischemia Prolonged QT Abnormal ECG When compared with ECG of 08-MAY-2020 07:29, Sinus rhythm has replaced Atrial flutter Nonspecific T wave abnormality has replaced inverted T waves in Inferior leads QT has shortened Confirmed by Vitor Navarro ([id number]) on 05/09/2021 12:20:59 PM Referred By: REFERRED SELF Confirmed By:Kojo Navarro
--- NOTE | 2021-05-09 12:21 | Electrocardiogram Report ---
Test Reason : Blood Pressure : / mmHG Vent. Rate : 062 BPM Atrial Rate : 062 BPM P-R Int : 154 ms QRS Dur : 084 ms QT Int : 448 ms P-R-T Axes : 000 228 -72 degrees QTc Int : 454 ms Normal sinus rhythm Right superior axis deviation (likely limb lead reversal) T wave abnormality, consider lateral ischemia Abnormal ECG When compared with ECG of 08-MAY-2020 17:32, (unconfirmed) QRS axis Shifted left T wave inversion less evident in Anterior leads Confirmed by Vitor Navarro ([id number]) on 05/09/2021 12:21:28 PM Referred By: REFERRED SELF Confirmed By:Kojo Navarro
[2021-05-09] MEDS ORDERED: SOTALOL HCL 80 MG TAB PO ONE (16:00)
[2021-05-09 16:03] VITALS: BP 104/72; O2SAT 99
--- NOTE | 2021-05-09 16:31 | Discharge Summary ---
Date of Service May 09, 2021 Admission HPI Per Admitting Provider Sofia Tomlin is a 56 year old female who presents to the ER with slurred speech, diplopia, expressive dysphasia, facial droop and right upper extremity weakness. She reports her symptoms started around 13:50 today while at work. 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 One of her clients was a nurse and called for an ambulance. In the ER initially her symptoms were still significantly present. There was some initial delay as she has a history of atrial flutter and previously on Eliquis. Due to her expressive dysphasia she had difficulty communicating initially whether she was still on this. On confirmation with cardiology it had been discontinued she was given tenecteplase on the advice of telestroke. She was also reportedly having a headache. When seen by this provider with family at bedside her right facial droop and right upper extremity weakness have resolved. She is still having some vision changes (diplopia) and very mild expressive dysphasia without any slurred speech. She reports a couple of similar episodes last week lasting minutes and she thought this was the same thing as those had completely resolved by themselves. She was referred to medicine for admission and ongoing management of stroke like symptoms. Principal Diagnosis Acute ischemic CVA, Rapid atrial flutter Discharge Exam Constitutional WD/WN, vitals as above Eyes + anicteric sclerae Neck trachea midline, no thyromegaly Respiratory normal respiratory effort, lungs clear to auscultation Cardiovascular Rate/Rhythm: regular rate and regular rhythm Heart Sounds: no murmur Chest (Breasts) Chest: normal inspection of chest Gastrointestinal (Abdomen) normal bowel sounds, soft, nontender, no hepatosplenomegaly Musculoskeletal Extremities: + extremities abnormal to inspection ( bruising on right toes but no tenderness palpation over right foot), no cyanosis and no clubbing Skin no rashes, warm and dry + ecchymosis (Right dorsal mid toes and right elbow) Neurologic PERRL, EOMI, accommodation nl, no face palsy, no dysarthria moves all extremities and awake; no focal motor deficits Psychiatric A+Ox3, euthymic affect Lymphatic no lymphedema Discharge Data Allergies Allergy/AdvReac Type Severity Reaction Status Date / Time codeine AdvReac Intermediate NAUSEA/VOMI Verified 05/05/21 15:00 TING Consultations 05/05/21 16:23 ED Decision to Admit Stat 05/05/21 18:28 Consult Ecclesiastical Worker Routine Consult Neurology Routine 05/06/21 12:18 Consult Cardiology Routine Ordered Studies 05/05/21 14:29 CT angio head w con Stat CT angio neck with con Stat CT head/brain wo con Stat 05/05/21 16:19 MR brain wo con Stat 05/05/21 18:02 CT angio chest dissec wo/w con Stat 05/06/21 15:05 CT head/brain wo con Routine ECHO x 2 Hospital Course (1) CVA (cerebral vascular accident): Patient presented with expressive aphasia, slurred speech, right upper extremity weakness, and right facial droop, as well as diplopia (left lateral gaze) possibly more chronic than acute. Decreased visual acuity in left eye. 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 twice daily for stroke prevention -Continue aspirin 81 mg daily -Started atorvastatin 80 mg daily, lipid panel good but needs high intensity statin. Follow lipids and LFTs in 6 weeks -Initially increased metoprolol to 50 mg daily for rapid atrial flutter, but then it was discontinued in favor of sotalol as below -Hemoglobin A1c at 5.8% in the prediabetes range -Appreciate PT/OT consultations-able to return home without services (2) Paroxysmal atrial flutter: With rapid atrial flutter here with rates in the 140s initially, then rates slightly improved to low 100s with increased metoprolol dosing Has had poor exercise tolerance with Aflutter as an outpatient-she has noticed rapid heart rates off and on for weeks at a time over the last year, but did not recognize this as atrial flutter Appreciate Cardiology consult-started sotalol x6 doses while inpatient, QTC 474 on the day of discharge, no further arrhythmias on telemetry after converted to normal sinus rhythm -Converted to normal sinus rhythm on the afternoon of 05/08 with rates in the 60s -Started Eliquis 5 mg p.o. twice daily as above [id number] 2 score is 1 prior to this event, but now is 3-high risk Replaced IV magnesium Appreciate cardiology consultation Follow-up with cardiology as an outpatient and considering ablation as an outpatient Stable for discharge to home on sotalol, Eliquis, discontinue home metoprolol (3) Hyperlipidemia: As above, started atorvastatin Follow-up LFTs and lipids in 4 to 6 weeks (4) Cardiomyopathy: Echocardiogram with EF 45 to 50% and focal akinesis to dyskinesis of the LV apex and a pattern consistent with apical ballooning cardiomyopathy, ischemic origin not completely excluded, mural thrombus not identified, no interatrial shunt noted Likely due to a post stroke syndrome Repeat echocardiogram with resolution of cardiomyopathy, EF now 50-35% Not able to give GDMT due to low normal blood [id number] with cardiology as an outpatient (5) Tobacco abuse: Quit many years ago, only smoked occasionally in her 20-30s (6) NENA (obstructive sleep apnea): Continue CPAP HS (7) Pulmonary nodule: Noted to have a 1.1 cm right lower lobe nodular opacity on CT angiogram of the chest performed for chest pain Radiology suspects it seems infectious in appearance, but a pulmonary nodule could appear similar Follow-up chest CT in 3 months Discussed this with patient (8) Prediabetes: Hemoglobin A1c 5.8% as above Needs weight loss and dietary changes-discussed with patient Follow low carbohydrate diet on discharge (9) Contusion: Contusion of the right elbow and dorsal right foot/toes status post fall down the stairs around 1 week ago No tenderness to palpation, do not suspect fractures, no x-ray indicated She is able to ambulate independently without pain VTE prophylaxis -Eliquis Disposition-stable for discharge to home Also, pt reports she is switching to a [facility] PCP, Myranda Miranda, in the near future. Appreciate [facility] Nurse Navigator arranging outpatient follow- up Total Time Total Time Spent Total Time Spent (In Minutes): 45 minutes Total Time Includes: Examination of the Patient, Discharge Planning, Medication Reconciliation and Communication With Other Providers (Cardiology) Discharge Plan Discharge Items Patient Disposition: Home - Self-Care Reason For Visit: CVA Discharge Diagnosis: Stroke, Atrial flutter Condition on Discharge: Good Activity: Resume your previous activity Non-emergency contact: Primary Care Provider, Automobile Radiator Mechanic and Neurologist Call non-emergency contact if: you have any medication questions and your symptoms worsen Follow-up/Referrals: Last Arteaga MD [Physician] - (Please follow up for your stroke in 4-6 weeks) Myranda Miranda DO [Primary Care Provider] - 05/15/21 10:45 am ([facility]. Please bring your insurance card and photo ID to this appointment.) Dania Snyder DO [Physician] - 06/02/21 11:15 am ([facility]. Please bring your insurance card and ID to this appointment.) Diet: Carb Consistent or DM2 and Heart Healthy Addtl Attending Provider Instructions: You were admitted after having a stroke and you received clot busting medication to resolve your symptoms. You were found to have atrial flutter which is an irregular heart rhythm that can lead to strokes. You were started on medication to keep your heart in a normal rhythm called Sotalol and this was successful. You were also started on Eliquis as a blood thinner to help prevent future stroke. Lastly, you were started on a cholesterol medication to reduce your risk of future stroke. This medication is called atorvastatin. Your PCP should check your cholesterol and liver function tests in about 4-6 weeks after starting this medication. You also were found to have prediabetes and should work on weight loss and eat a low carbohydrate diet to help prevent you from getting diabetes. Incidentally, you were found to have a nodule in your right lower lung that needs a follow up chest CT in 3 months to ensure it has resolved. Risk Factors for Stroke: You can reduce your chances of stroke by working with your medical provider to adopt a healthy lifestyle. Some specific ways to lower your chance of stroke are: * If you are a smoker, now is the time to stop smoking cigarettes * If you are diabetic, improve the control of your blood sugars * Avoid excessive amounts of alcohol * Control high blood pressure * Lose weight if you are overweight * Be sure to lead an active lifestyle * Eat a healthy diet low in salt, cholesterol and fat You should know about other risk factors for stroke that you are unable to control. These include: * Age 55 years or older * Male gender * Certain racial groups: , or / * Family History of Stroke, Mini stroke or Heart Attack * Sickle Cell Disease Follow Up: It is important for you to keep your follow up appointments with your medical provider. Who to Call and When: Medical Emergencies: Call 911 immediately if you experience any of the following warning signs and symptoms of Stroke: * Sudden numbness or weakness of the face, arm or leg, especially on one side of the body * Sudden confusion, trouble speaking or understanding * Sudden trouble seeing in one or both eyes * Sudden trouble walking, dizziness, loss of balance or coordination * Sudden severe headache with no cause Do not delay calling 911 if you experience any warning signs or symptoms of a stroke. Delay in seeking medical attention may affect what treatments can be given to you. . Medication Instructions: Your condition is typically treated with an anticoagulant. Anticoagulants will thin your blood to help prevent new clots. * You should take her medication exactly as directed. * Never skip a dose. * Never take a double dose. If you miss a dose, take it as soon as you remember. Call your Primary Care doctor if you experience any of the following: * Swelling or Pain in your leg * Sudden, continuous pain deep in a muscle * Pain that worsens when you are active or when you stand still for a long time * Chest Pain * Sudden Shortness of Breath * Rapid or pounding heart beat * Fainting * Dizziness * Cough with blood or bloody sputum * Sweating more than normal * Bruises * Heavy or uncontrolled bleeding * Blood in your urine, stool or vomit * Black or tarry stools Follow Up: It is important for you to keep your follow up appointments with your medical provider. Pending Studies at Discharge: No Stand-Alone Forms: Medications to Prevent Stroke, [facility] Medications and DC Order Prescriptions: New sotalol 80 mg Tablet 80 mg PO BID Qty: 60 RF: 0 atorvastatin 80 mg tablet 80 mg PO DAILY Qty: 30 RF: 0 Eliquis 5 mg tablet 5 mg PO BID Qty: 60 RF: 0 Continued aspirin 81 mg Tablet,Delayed Release (Dr/Ec) 81 mg PO DAILY RF: 0 Discontinued metoprolol succinate 25 mg tablet extended release 24 hr 25 mg PO DAILY RF: 0 Discharge Orders: Discharge Order (Routine); Ordered 05/09/21 Ordered By: Adriane Mcocllum Admission Data Admit Date/Time: 05/05/21 16:30 Attending Provider: Adriane Mccollum Admit Provider: Mark Nieto Primary Care Provider: Myranda Miranda Other Providers: Mark Nieto ; Chris Baker ; Last Arteaga ; Nav Norman Other Interventions: Discharge Summary Assessment (RN) Last Done: 05/09/21 16:51 Coding Level of Care Code D/C DAY MANAGEMENT >30 MINS Diagnoses CVA (cerebral vascular accident) I63.9 Paroxysmal atrial flutter I48.92 Hyperlipidemia E78.5 Cardiomyopathy I42.9 Tobacco abuse Z72.0 NENA (obstructive sleep apnea) G47.33 Pulmonary nodule R91.1 Prediabetes R73.03 Contusion T14.8XXA
[2021-05-09] MEDS ORDERED: STROKE PATIENT DISCHARGE STA (16:34)
[2021-05-09 16:55] VITALS: PULSE 65; TEMP 97.7
--- NOTE | 2021-05-09 16:59 | Pharmacy Report ---
Pharmacist Stroke Counseling - Date of Service May 09, 2021 - Scope: Pharmacy has been consulted to provide medication discharge counseling for this patient admitted with [ischemic stroke] [hemorrhagic stroke] [transient ischemic attack] as per the Pharmacist Discharge Counseling for Stroke Patients Prot enmaol. - Medications on Discharge: Home Medications Medication Instructions Recorded Confirmed aspirin 81 mg tablet,delayed 81 mg PO DAILY 05/05/21 05/05/21 release New Rx's Medication Instructions Recorded apixaban 5 mg tablet (Eliquis) 5 mg PO BID #60 tab 05/09/21 atorvastatin 80 mg tablet 80 mg PO DAILY #30 tab 05/09/21 sotalol 80 mg tablet 80 mg PO BID #60 tab 05/09/21 - Action: The above medications, specifically ones for stroke treatment/prophylaxis, have been reviewed in detail with the patient and/or patient sales representative advertising(s) prior to discharge. This includes indication, common adverse reactions, drug interactions, and medication administration. Medication counseling has been employed using the teach-back method to ensure understanding. - Outcome: The patient and/or patient sales representative advertising(s) have demonstrated understanding of the medications. Additional comments: Provided discharge counseling to patient over the phone prior to discharge. No pertinent positives on interview. Answered all questions from patient Thank you for allowing pharmacy to be involved in the care of this patient. Please call [phone] with any additional questions
[2021-05-10] MEDS ORDERED: SOTALOL HCL 80 MG TAB PO SCH (09:00)
--- NOTE | 2021-05-10 15:51 | Electrocardiogram Report ---
Test Reason : Blood Pressure : / mmHG Vent. Rate : 060 BPM Atrial Rate : 060 BPM P-R Int : 160 ms QRS Dur : 078 ms QT Int : 472 ms P-R-T Axes : 033 -18 037 degrees QTc Int : 472 ms Normal sinus rhythm Low voltage QRS Nonspecific T wave abnormality Abnormal ECG When compared with ECG of 08-MAY-2020 19:55, QRS axis Shifted right Non-specific change in ST segment in Anterior leads Nonspecific T wave abnormality has replaced inverted T waves in Anterolateral leads Confirmed by Vitor Navarro ([id number]) on 05/10/2021 3:51:12 PM Referred By: REFERRED SELF Confirmed By:Kojo Navarro
== END 2021-05-09 17:39 | disposition home or self-care (01) | DRG 62 ==
LOC: ED 14:33 → 1E 16:30 → SUATTDRO 16:30 → 1E 18:40